=== PATIENT | male | born 1940 | race Caucasian/White ===

== ENCOUNTER 2017-06-12 17:00 | Emergency (ER) | payer MEDICARE, OTHER ==
[~2017-06-12] VITALS: Ht 170.2 cm; Wt 115.2 kg
[~2017-06-12 17:00] MED LIST: ALBU8.5H8 IH; ATR0.5NEB IH; CHOL2000 PO; DULO-31 PO; FENO48TA15 PO; FERR134T2 PO; FLUT10SP NS; FLUT12AE9 INH; FURO20TA4 PO; GLIM1TAB46 PO; HYDR-4070 PO; INSU200I4; LACT1CAP65 PO; LINA5TAB4 PO; LYR25C PO; MELA3TAB PO; MOME45OI11 TOP; NEOM3.5O9 OP; NITR0.4T51 SL; PANT40TA39 PO; POLY454P5 PO; SIMV20TA5 PO; VALS160T2 PO; WARFARIN PO
[2017-06-12 17:20] VITALS: BP 125/62
[2017-06-12] MEDS ORDERED: LIDOcaine 1% 30ml preserv. free vial IJ ONE (18:00)
== END 2017-06-12 18:58 | disposition home or self-care (01) ==
LOC: ER 17:01
DX: S61.012A Laceration without foreign body of left thumb without damage to nail, initial encounter (principal); I10 Essential (primary) hypertension; E78.00 Pure hypercholesterolemia, unspecified; J44.9 Chronic obstructive pulmonary disease, unspecified; K21.9 Gastro-esophageal reflux disease without esophagitis; E11.9 Type 2 diabetes mellitus without complications; G89.29 Other chronic pain; Z90.49 Acquired absence of other specified parts of digestive tract; Z91.040 Latex allergy status; Z79.899 Other long term (current) drug therapy; Z79.4 Long term (current) use of insulin; W26.0XXA Contact with knife, initial encounter; Y93.89 Activity, other specified; Y92.89 Other specified places as the place of occurrence of the external cause; Y99.8 Other external cause status
CPT/HCPCS: 12001; 99283; A6255; A6449; J3490

== ENCOUNTER 2017-07-11 05:01 | Outpatient (CLI) | payer MEDICARE, OTHER | END 2017-07-11 23:59 | disposition home or self-care (01) | LOC: DIABETIC 05:01 | PROVIDERS: ATTEND Family Medicine | DX: E11.9 Type 2 diabetes mellitus without complications (principal); I10 Essential (primary) hypertension; J44.9 Chronic obstructive pulmonary disease, unspecified; Z87.891 Personal history of nicotine dependence | CPT/HCPCS: G0108 ==

== ENCOUNTER 2017-10-18 01:36 | Outpatient (CLI) | payer MEDICARE, OTHER | END 2017-10-18 23:59 | disposition home or self-care (01) | LOC: DIABETIC 01:36 | PROVIDERS: ATTEND Family Medicine | DX: E11.9 Type 2 diabetes mellitus without complications (principal); J44.9 Chronic obstructive pulmonary disease, unspecified; I10 Essential (primary) hypertension; Z79.899 Other long term (current) drug therapy; Z91.040 Latex allergy status; Z88.8 Allergy status to other drugs, medicaments and biological substances; Z87.891 Personal history of nicotine dependence; Z98.890 Other specified postprocedural states | CPT/HCPCS: G0108 ==

== ENCOUNTER 2018-01-23 02:26 | Outpatient (CLI) | payer MEDICARE, OTHER | END 2018-01-23 23:59 | disposition home or self-care (01) | LOC: DIABETIC 02:26 | PROVIDERS: ATTEND Family Medicine | DX: E11.9 Type 2 diabetes mellitus without complications (principal); J44.9 Chronic obstructive pulmonary disease, unspecified; I10 Essential (primary) hypertension; Z79.899 Other long term (current) drug therapy; Z91.040 Latex allergy status; Z88.8 Allergy status to other drugs, medicaments and biological substances; Z87.891 Personal history of nicotine dependence | CPT/HCPCS: G0108 ==

== ENCOUNTER 2018-04-24 01:34 | Outpatient (CLI) | payer MEDICARE, OTHER | END 2018-04-24 23:59 | disposition home or self-care (01) | LOC: DIABETIC 01:34 | PROVIDERS: ATTEND Family Medicine | DX: E11.9 Type 2 diabetes mellitus without complications (principal); I10 Essential (primary) hypertension; J44.9 Chronic obstructive pulmonary disease, unspecified; Z79.4 Long term (current) use of insulin; Z91.040 Latex allergy status; Z88.8 Allergy status to other drugs, medicaments and biological substances; Z88.6 Allergy status to analgesic agent | CPT/HCPCS: G0108 ==

== ENCOUNTER 2018-06-15 12:12 | Emergency (ER) | payer MEDICARE, OTHER ==
[~2018-06-15] VITALS: Ht 170.2 cm; Wt 116.4 kg
[2018-06-15 13:14] LABS: BASOPHILS % (AUTO) 0.3 % (0-1); EOSINOPHILS # (AUTO) 0.1 X10'3 (0-0.9); EOSINOPHILS % (AUTO) 0.9 % (0-6); HEMATOCRIT 43.3 % (42.0-52.0); HEMOGLOBIN 13.9 g/dl (14.0-17.9); LYMPHOCYTES # (AUTO) 1.4 X10'3 (1.1-4.8); LYMPHOCYTES % (AUTO) 16.1 % (21-51); MEAN CORPUSCULAR HEMOGLOBIN 32.8 PG (27.0-31.0); MEAN CORPUSCULAR HGB CONC 32.2 g/dL (33.0-36.5); MEAN CORPUSCULAR VOLUME 102.1 FL (78-98); MEAN PLATELET VOLUME 9.9 FL (7.4-10.4); MONOCYTES # (AUTO) 1.1 X10'3 (0-0.9); MONOCYTES % (AUTO) 11.7 % (2-12); NEUTROPHILS # (AUTO) 6.4 X10'3 (1.8-7.7); PLATELET COUNT 140 X10'3 (140-440); RED BLOOD COUNT 4.24 X10'6 (4.70-6.10); RED CELL DISTRIBUTION WIDTH 14.6 % (11.5-14.5)
[2018-06-15 13:36] LABS: ALANINE AMINOTRANSFERASE 60 U/L (12-78); ALBUMIN 3.3 G/DL (3.4-5.0); ALBUMIN/GLOBULIN RATIO 0.8 (1.1-1.5); ALKALINE PHOSPHATASE 94 IU/L (46-116); ANION GAP 9 (8-16); ASPARTATE AMINO TRANSFERASE 67 U/L (10-37); BILIRUBIN,TOTAL 0.7 MG/DL (0.1-1.0); BLOOD UREA NITROGEN 40 MG/DL (7-18); BUN/CREATININE RATIO 18.2 (5.4-32.0); CALCIUM 9.1 MG/DL (8.5-10.1); CHLORIDE 101 MMOL/L (99-107); GLUCOSE 211 MG/DL (70-104); POTASSIUM 4.7 MMOL/L (3.5-5.1); SODIUM 139 MMOL/L (135-145); TOTAL CARBON DIOXIDE 29.3 MMOL/L (24-32); TOTAL PROTEIN 7.2 G/DL (6.4-8.2); eGFR 29 ML/MIN
[2018-06-15] MEDS ORDERED: ipratropium/albuterol 3ml nebule NEB ONE (14:25)
[2018-06-15] MEDS ORDERED: azithromycin/NS 500mg/250ml 250 ML IV ONE (14:25)
[2018-06-15] MEDS ORDERED: CefTRIAXone 2gm/D5W 50ml 50 ML IV ONE (14:25)
[2018-06-15 14:55] LABS: ETHANOL < 0.010 GM/DL (0.0-0.010); MAGNESIUM 1.7 MG/DL (1.5-2.4)
--- NOTE | 2018-06-15 15:01 | NUR ---
Spoke with Dr. Ham regarding ordered abx dosages and indication from dosage. Dr. Ham stated that Patient had an elevated LA, but wanted to treat patient for COPD, not sepsis. Discussed with Dr. aHm regarding sepsis protocol and fluid administration, Dr. Ham stated that he wanted to hold off on fluid administation due to patient taking PO lasix for CHF at home.
[2018-06-15 15:03] LABS: INR 1.1 INR; PARTIAL THROMBOPLASTIN TIME 29 SECONDS (22-32); PROTHROMBIN TIME 11.2 SECONDS (9.0-12.0)
[2018-06-15 15:35] LABS: CLARITY,URINE CLEAR (Clear); COLOR,URINE YELLOW (Yellow); GLUCOSE, URINE NEGATIVE (Neg); KETONES,URINE NEGATIVE (Neg); LEUKOCYTE ESTERASE ,URINE NEGATIVE (Neg); NITRITES, URINE NEGATIVE (Neg); OCCULT BLOOD,URINE NEGATIVE (Neg); PH,URINE 5.5 (4.8-8.0); PROTEIN,URINE NEGATIVE (Neg); UROBILINOGEN,URINE 0.2 E.U/dL (0.2-1.0)
[2018-06-15 15:37] LABS: UA COLLECTION TYPE URINAL
[2018-06-15] MEDS ORDERED: FURO40TA4 PO (16:49)
[2018-06-15] MEDS ORDERED: ICOS1CAP PO (16:57)
[2018-06-15] MEDS ORDERED: DULA1.5P SQ (16:57)
[2018-06-15] MEDS ORDERED: GABA-532 PO (16:57)
[2018-06-15] MEDS ORDERED: SIMV10TA6 PO (16:57)
[2018-06-15] MEDS ORDERED: APIX2.5T PO (16:57)
[2018-06-15] MEDS ORDERED: FOLI1TAB16 PO (16:57)
[2018-06-15] MEDS ORDERED: INSU200I SQ (16:57)
[2018-06-15] MEDS ORDERED: DICL100G15 TOP (16:57)
[2018-06-15] MEDS ORDERED: GABA-530 PO (16:57)
[2018-06-15] MEDS ORDERED: MORP-64 PO (17:04)
[2018-06-15] MEDS ORDERED: HYDR-4353 PO (17:04)
[2018-06-15] MEDS ORDERED: albuterol 2.5 MG/3 ML nebule NEB ONE (17:50)
[2018-06-15] MEDS ORDERED: methylPREDNISolone sod succ 125mg/2ml vial IV ONE (17:50)
[2018-06-15] MEDS ORDERED: albuterol 2.5 MG/3 ML nebule ONE (17:52)
[2018-06-15] MEDS ORDERED: AZIT-63 PO (18:02)
[2018-06-15] MEDS ORDERED: PRED20TA PO (18:02)
[2018-06-15 18:26] VITALS: BP 176/67
== END 2018-06-15 18:28 | disposition home or self-care (01) ==
LOC: ER 12:13
DX: J44.1 Chronic obstructive pulmonary disease with (acute) exacerbation (principal); E11.65 Type 2 diabetes mellitus with hyperglycemia; I10 Essential (primary) hypertension; K21.9 Gastro-esophageal reflux disease without esophagitis; G89.29 Other chronic pain; E78.00 Pure hypercholesterolemia, unspecified; Z86.718 Personal history of other venous thrombosis and embolism; Z90.49 Acquired absence of other specified parts of digestive tract; Z98.890 Other specified postprocedural states; Z79.01 Long term (current) use of anticoagulants; Z79.899 Other long term (current) drug therapy; Z79.4 Long term (current) use of insulin; Z91.040 Latex allergy status; Z88.8 Allergy status to other drugs, medicaments and biological substances
CPT/HCPCS: 36415; 71046; 80053; 80320; 81003; 83605; 83735; 83880; 84145; 84484; 85025; 85610; 85730; 87040; 93005; 94640; 94760; 96365; 96375; 99284; J0456; J0696; J2930

== ENCOUNTER 2018-07-24 05:07 | Outpatient (CLI) | payer MEDICARE, OTHER ==
[~2018-07-24 05:07] MED LIST changes: -ALBU8.5H8 IH; +APIX2.5T PO; +DICL100G15 TOP; +DULA1.5P SQ; -FENO48TA15 PO; +FOLI1TAB16 PO; -FURO20TA4 PO; +FURO40TA4 PO; +GABA-530 PO; +GABA-532 PO; -GLIM1TAB46 PO; -HYDR-4070 PO; +HYDR-4353 PO; +ICOS1CAP PO; +INSU200I SQ; -LINA5TAB4 PO; -MOME45OI11 TOP; +MORP-64 PO; -NEOM3.5O9 OP; +SIMV10TA6 PO; -SIMV20TA5 PO; -WARFARIN PO
== END 2018-07-24 23:59 | disposition home or self-care (01) ==
LOC: DIABETIC 05:07
PROVIDERS: ATTEND Family Medicine
DX: E11.65 Type 2 diabetes mellitus with hyperglycemia (principal); Z79.4 Long term (current) use of insulin; Z79.899 Other long term (current) drug therapy; Z91.040 Latex allergy status; Z88.8 Allergy status to other drugs, medicaments and biological substances
CPT/HCPCS: G0108

== ENCOUNTER 2018-10-24 02:28 | Outpatient (CLI) | payer MEDICARE ==
[~2018-10-24 02:28] MED LIST changes: -MELA3TAB PO; +MELA3TAB64 PO; -MORP-64 PO; +MORP-92 PO
== END 2018-10-24 23:59 | disposition home or self-care (01) ==
LOC: DIABETIC 02:28
PROVIDERS: ATTEND Family Medicine
DX: E11.9 Type 2 diabetes mellitus without complications (principal); I10 Essential (primary) hypertension; J44.9 Chronic obstructive pulmonary disease, unspecified; Z79.4 Long term (current) use of insulin; Z91.040 Latex allergy status; Z79.899 Other long term (current) drug therapy; Z88.8 Allergy status to other drugs, medicaments and biological substances
CPT/HCPCS: G0108

== ENCOUNTER 2019-01-21 04:10 | Outpatient (CLI) | payer MEDICARE ==
[~2019-01-21 04:10] MED LIST changes: -SIMV10TA6 PO; +SIMV10TA98 PO
== END 2019-01-21 23:59 | disposition home or self-care (01) ==
LOC: DIABETIC 04:10
PROVIDERS: ATTEND Family Medicine
DX: E11.9 Type 2 diabetes mellitus without complications (principal); J44.9 Chronic obstructive pulmonary disease, unspecified; I10 Essential (primary) hypertension; Z79.4 Long term (current) use of insulin; Z79.899 Other long term (current) drug therapy; Z91.040 Latex allergy status; Z88.8 Allergy status to other drugs, medicaments and biological substances
CPT/HCPCS: G0108

== ENCOUNTER 2019-04-22 04:36 | Outpatient (CLI) | payer MEDICARE | END 2019-04-22 23:59 | disposition home or self-care (01) | LOC: DIABETIC 04:36 | PROVIDERS: ATTEND Family Medicine | DX: E11.9 Type 2 diabetes mellitus without complications (principal) | CPT/HCPCS: G0108 ==

== ENCOUNTER 2019-10-07 07:43 | Day surgery (SDC) | payer MEDICARE, OTHER ==
[2019-10-01 16:06] LABS: BASOPHILS % (AUTO) 0.5 % (0-1); EOSINOPHILS # (AUTO) 0.2 X10'3 (0-0.9); EOSINOPHILS % (AUTO) 2.6 % (0-6); LYMPHOCYTES % (AUTO) 32.4 % (21-51); MEAN CORPUSCULAR HGB CONC 32.9 g/dL (33.0-36.5); MEAN CORPUSCULAR VOLUME 100.3 FL (78-98); MEAN PLATELET VOLUME 9.2 FL (7.4-10.4); MONOCYTES # (AUTO) 0.7 X10'3 (0-0.9); MONOCYTES % (AUTO) 11.9 % (2-12); NEUTROPHILS # (AUTO) 3.2 X10'3 (1.8-7.7); NEUTROPHILS % (AUTO) 52.6 % (42-75); PRE OP HEMATOCRIT 36.8 % (42.0-52.0); PRE OP HEMOGLOBIN 12.1 g/dL (14.0-17.9); PRE OP PLATELET COUNT 113 X10'3 (140-440); RED BLOOD COUNT 3.67 X10'6 (4.70-6.10); RED CELL DISTRIBUTION WIDTH 15.7 % (11.5-14.5)
[2019-10-01 16:21] LABS: PRE OP INR 1.1 INR
[2019-10-01 16:24] LABS: ALBUMIN 3.6 G/DL (3.4-5.0); ALBUMIN/GLOBULIN RATIO 0.9 (1.1-1.5); ALKALINE PHOSPHATASE 65 IU/L (46-116); BLOOD UREA NITROGEN 34 MG/DL (7-18); BUN/CREATININE RATIO 13.4 (5.4-32.0); CHLORIDE 106 MMOL/L (99-107); CREATININE 2.53 MG/DL (0.60-1.10); PRE OP ALT 41 U/L (30-65); PRE OP ANION GAP 10 (8-16); PRE OP BILIRUB, TOTAL 0.6 MG/DL (0.0-1.0); PRE OP GLUCOSE 63 MG/DL (70-104); PRE OP SODIUM 147 MMOL/L (135-145); TOTAL CARBON DIOXIDE 31.3 MMOL/L (24-32); TOTAL PROTEIN 7.4 G/DL (6.4-8.2); eGFR 25 ML/MIN
[2019-10-01 16:29] LABS: PRE OP AST 37 U/L (10-37); PRE OP POTASSIUM 4.4 MMOL/L (3.4-5.1)
[~2019-10-07] VITALS: Ht 175.3 cm; Wt 120.2 kg
[~2019-10-07 07:43] MED LIST changes: -FERR134T2 PO; +FLUO30CR46 TOP; +FLUT100D2 INH; -FLUT10SP NS; -FOLI1TAB16 PO; -GABA-530 PO; -LACT1CAP65 PO; +LIDOcaine 1% 30ml preserv. free vial ONE; +LOSA25TA96 PO; -MELA3TAB64 PO; +NALO4SPR BOTHNARES; -POLY454P5 PO; +VALA100031 PO; -VALS160T2 PO; +albuterol 2.5 MG/3 ML nebule NEB ONE; +ceFAZolin 2gm in dextrose, iso 50 ML IV ONE; +famotidine 20mg tablet PO ONE; +ringers solution, lacted 1,000 ML IV SCH
[2019-10-07 07:50] VITALS: BP 167/91
[2019-10-07] MEDS ORDERED: ringers solution, lacted 1,000 ML IV SCH (09:09)
[2019-10-07] MEDS ORDERED: morphine 2 MG/ML inj. syringe IV PRN (09:10)
[2019-10-07] MEDS ORDERED: morphine 4 MG/ML inj SYRINge IV PRN (09:10)
[2019-10-07] MEDS ORDERED: meperidine/PF 25mg/ml syringe IV PRN ×3 (09:10)
[2019-10-07] MEDS ORDERED: proCHLORperazine 10 MG/2 ml inj IV PRN (09:10)
[2019-10-07] MEDS ORDERED: ondansetron/PF 4mg/2ml inj IV PRN (09:10)
--- NOTE | 2019-10-07 09:20 | NUR ---
DR MALONEY AWARE OF BS 67. NO ORDERS
[2019-10-07] MEDS ORDERED: midazolam 2 mg/2 ml injection ONE (09:34)
[2019-10-07] MEDS ORDERED: fentaNYL/PF 50MCG/1 ML 2ML syringe ONE (09:34)
[2019-10-07] MEDS ORDERED: BUPIVAcaine/PF 2.5mg/ml (0.25%) 10ml vial ONE (09:41)
--- NOTE | 2019-10-07 10:19 | NUR ---
Received from OR via [facility] , accompanied by Anesthesiologist GISSELLE and report given by Anesthesiolgist. PATIENT WITH 20G PIV IN RIGHT UE. VSS, DENIES PAIN LEFT WRIST DRESSING IS CDI AND NO C/O PAIN. + CAP REFILL AND MOVEMENT. Addendum: 10/07/19 at 1028 by Alexis Valencia RN, RN Amended: Links added.
[2019-10-07 10:26] VITALS: BP 141/69
[2019-10-07 10:36] VITALS: BP 140/72
[2019-10-07 10:46] VITALS: BP 134/71
[2019-10-07 10:56] VITALS: BP 129/69
--- NOTE | 2019-10-07 11:06 | NUR ---
I HAVE REVIEWED D/C INSTRUCTIONS WITH PATIENT AND FAMILY AND THEY HAVE VERBALIZED UNDERSTANDING. PATIENT D/C HOME WITH ALL BELONGINGS AND FAMILY GAVE TRANSPORT HOME. KIM TOOK PATIENT HOME. ON HIS OWN 4LPM OF O2. DENIES PAIN AND DRESSING TO LEFT WRIST WAS CDI. Addendum: 10/07/19 at 1114 by Alexis Valencia RN, RN Amended: Links added.
== END 2019-10-07 11:06 | disposition home or self-care (01) ==
LOC: PAS 07:43
PROVIDERS: ATTEND Orthopaedic Surgery Hand Surgery
DX: G56.02 Carpal tunnel syndrome, left upper limb (principal); G89.4 Chronic pain syndrome; J44.9 Chronic obstructive pulmonary disease, unspecified; G47.30 Sleep apnea, unspecified; I10 Essential (primary) hypertension; E11.22 Type 2 diabetes mellitus with diabetic chronic kidney disease; I13.0 Hypertensive heart and chronic kidney disease with heart failure and stage 1 through stage 4 chronic kidney disease, or unspecified chronic kidney disease; I50.9 Heart failure, unspecified; N18.9 Chronic kidney disease, unspecified; F32.9 Major depressive disorder, single episode, unspecified; F41.9 Anxiety disorder, unspecified; M19.90 Unspecified osteoarthritis, unspecified site; Z86.718 Personal history of other venous thrombosis and embolism; Z99.81 Dependence on supplemental oxygen; Z88.8 Allergy status to other drugs, medicaments and biological substances; Z91.040 Latex allergy status; Z11.59 Encounter for screening for other viral diseases; Z79.899 Other long term (current) drug therapy; Z79.01 Long term (current) use of anticoagulants; Z98.890 Other specified postprocedural states; Z87.891 Personal history of nicotine dependence; Z72.89 Other problems related to lifestyle
CPT/HCPCS: 36415; 64721; 71046; 80053; 82948; 85025; 85610; 85730; 93005; 94640; 94760; J2001; J2250; J3010; J3490; U0003; A4215; A6449; J7120

== ENCOUNTER 2019-10-12 02:18 | Emergency (ER) | payer MEDICARE, OTHER ==
[~2019-10-12] VITALS: Ht 170.2 cm; Wt 120.2 kg
[~2019-10-12 02:18] MED LIST changes: -LIDOcaine 1% 30ml preserv. free vial ONE; -albuterol 2.5 MG/3 ML nebule NEB ONE; -ceFAZolin 2gm in dextrose, iso 50 ML IV ONE; -famotidine 20mg tablet PO ONE; -ringers solution, lacted 1,000 ML IV SCH
[2019-10-12] MEDS ORDERED: oxyCODONE/APAP 10/325mg tablet PO ONE (02:45)
[2019-10-12] MEDS ORDERED: fentaNYL intranasal KIT NAS STA ×2 (03:26→03:41)
[2019-10-12] MEDS ORDERED: LIDOcaine 1% 30ml preserv. free vial IJ ONE (03:35)
[2019-10-12] MEDS ORDERED: OXYC-658 PO (04:22)
[2019-10-12 04:37] VITALS: BP 169/79
== END 2019-10-12 04:39 | disposition home or self-care (01) ==
LOC: ER 02:18
DX: S52.572A Other intraarticular fracture of lower end of left radius, initial encounter for closed fracture (principal); M25.532 Pain in left wrist; M54.2 Cervicalgia; W01.190A Fall on same level from slipping, tripping and stumbling with subsequent striking against furniture, initial encounter; Y92.012 Bathroom of single-family (private) house as the place of occurrence of the external cause; Y93.89 Activity, other specified; Y99.8 Other external cause status; R58 Hemorrhage, not elsewhere classified; E78.00 Pure hypercholesterolemia, unspecified; I10 Essential (primary) hypertension; J44.9 Chronic obstructive pulmonary disease, unspecified; K21.9 Gastro-esophageal reflux disease without esophagitis; E11.9 Type 2 diabetes mellitus without complications; G89.29 Other chronic pain; Z86.718 Personal history of other venous thrombosis and embolism; Z90.49 Acquired absence of other specified parts of digestive tract; Z98.890 Other specified postprocedural states; Z88.8 Allergy status to other drugs, medicaments and biological substances; Z91.040 Latex allergy status; Z79.4 Long term (current) use of insulin; Z79.2 Long term (current) use of antibiotics; Z79.899 Other long term (current) drug therapy
CPT/HCPCS: 25605; 70450; 72125; 73100; 73110; 99285; J3010

== ENCOUNTER 2019-10-30 00:06 | Emergency (ER) | payer MEDICARE, OTHER ==
[~2019-10-30] VITALS: Ht 172.7 cm; Wt 119.1 kg
[~2019-10-30 00:06] MED LIST changes: +OXYC-658 PO
[2019-10-30] MEDS ORDERED: nitroGLYCERIN 0.4mg SUBLingual tab SL PRN (00:10)
[2019-10-30] MEDS ORDERED: aspirin 81mg tab.chew PO ONE (00:10)
[2019-10-30 00:36] LABS: BASOPHILS % (AUTO) 0.5 % (0-1); EOSINOPHILS # (AUTO) 0.2 X10'3 (0-0.9); EOSINOPHILS % (AUTO) 3.3 % (0-6); HEMATOCRIT 35.8 % (42.0-52.0); HEMOGLOBIN 12.1 g/dl (14.0-17.9); LYMPHOCYTES # (AUTO) 2.4 X10'3 (1.1-4.8); LYMPHOCYTES % (AUTO) 33.5 % (21-51); MEAN CORPUSCULAR HEMOGLOBIN 33.6 PG (27.0-31.0); MEAN CORPUSCULAR HGB CONC 33.7 g/dL (33.0-36.5); MEAN CORPUSCULAR VOLUME 99.9 FL (78-98); MEAN PLATELET VOLUME 9.8 FL (7.4-10.4); MONOCYTES # (AUTO) 0.8 X10'3 (0-0.9); MONOCYTES % (AUTO) 11.1 % (2-12); NEUTROPHILS # (AUTO) 3.7 X10'3 (1.8-7.7); NEUTROPHILS % (AUTO) 51.6 % (42-75); PLATELET COUNT 128 X10'3 (140-440); RED BLOOD COUNT 3.59 X10'6 (4.70-6.10); RED CELL DISTRIBUTION WIDTH 14.8 % (11.5-14.5); WHITE BLOOD COUNT 7.2 X10'3 (4.5-11.0)
[2019-10-30 00:48] LABS: ALANINE AMINOTRANSFERASE 28 U/L (12-78); ALBUMIN 3.7 G/DL (3.4-5.0); ALKALINE PHOSPHATASE 65 IU/L (46-116); ANION GAP 8 (8-16); ASPARTATE AMINO TRANSFERASE 24 U/L (10-37); BILIRUBIN,TOTAL 0.5 MG/DL (0.1-1.0); BLOOD UREA NITROGEN 53 MG/DL (7-18); BUN/CREATININE RATIO 18.2 (5.4-32.0); CHLORIDE 102 MMOL/L (99-107); CREATININE 2.92 MG/DL (0.60-1.10); GLUCOSE 119 MG/DL (70-104); POTASSIUM 4.1 MMOL/L (3.5-5.1); SODIUM 143 MMOL/L (135-145); TOTAL CARBON DIOXIDE 32.8 MMOL/L (24-32); TOTAL PROTEIN 7.3 G/DL (6.4-8.2); eGFR 21 ML/MIN
[2019-10-30 00:57] LABS: MAGNESIUM 2.3 MG/DL (1.5-2.4); TROPONIN I < 0.04 NG/ML (0.0-0.05)
[2019-10-30 01:19] VITALS: BP 113/76
[2019-10-30 02:14] LABS: D-DIMER 1.11 MG/L FEU (0-0.50); PARTIAL THROMBOPLASTIN TIME 26 SECONDS (22-32)
--- NOTE | 2019-10-30 02:39 | NUR ---
dr cope talking with Pt about lab work and DC. Reports he has a negative cardiac work up. Pt called to ick up for DC.
== END 2019-10-30 02:43 | disposition home or self-care (01) ==
LOC: ER 00:07
DX: R07.89 Other chest pain (principal); I12.9 Hypertensive chronic kidney disease with stage 1 through stage 4 chronic kidney disease, or unspecified chronic kidney disease; E11.22 Type 2 diabetes mellitus with diabetic chronic kidney disease; N18.9 Chronic kidney disease, unspecified; E78.00 Pure hypercholesterolemia, unspecified; J44.9 Chronic obstructive pulmonary disease, unspecified; K21.9 Gastro-esophageal reflux disease without esophagitis; G89.29 Other chronic pain; I48.91 Unspecified atrial fibrillation; Z86.718 Personal history of other venous thrombosis and embolism; Z90.49 Acquired absence of other specified parts of digestive tract; Z98.890 Other specified postprocedural states; Z79.899 Other long term (current) drug therapy; Z91.040 Latex allergy status; Z88.6 Allergy status to analgesic agent; Z88.8 Allergy status to other drugs, medicaments and biological substances
CPT/HCPCS: 36415; 71045; 80053; 83735; 83880; 84484; 85025; 85379; 85610; 85730; 93005; 99285

== ENCOUNTER 2019-11-14 20:12 | Emergency (ER) | payer MEDICARE, OTHER ==
[~2019-11-14] VITALS: Ht 172.7 cm; Wt 130.0 kg
[~2019-11-14 20:12] MED LIST changes: -OXYC-658 PO
[2019-11-14 21:27] VITALS: BP 116/86
== END 2019-11-14 23:01 | disposition home or self-care (01) ==
LOC: ER 20:13
DX: S62.109D Fracture of unspecified carpal bone, unspecified wrist, subsequent encounter for fracture with routine healing (principal); E78.00 Pure hypercholesterolemia, unspecified; I10 Essential (primary) hypertension; J44.9 Chronic obstructive pulmonary disease, unspecified; G47.30 Sleep apnea, unspecified; K21.9 Gastro-esophageal reflux disease without esophagitis; E11.9 Type 2 diabetes mellitus without complications; G89.29 Other chronic pain; Z86.718 Personal history of other venous thrombosis and embolism; Z00.00 Encounter for general adult medical examination without abnormal findings; Z90.49 Acquired absence of other specified parts of digestive tract; Z98.890 Other specified postprocedural states; Z88.5 Allergy status to narcotic agent; Z88.8 Allergy status to other drugs, medicaments and biological substances; Z79.01 Long term (current) use of anticoagulants; Z79.4 Long term (current) use of insulin; Z79.899 Other long term (current) drug therapy
CPT/HCPCS: 99284

== ENCOUNTER 2019-11-26 08:00 | Day surgery (SDC) | payer MEDICARE, OTHER ==
[2019-11-26] MEDS ORDERED: LIDOcaine 2% 5ml jelly ONE (09:09)
== END 2019-11-26 10:21 | disposition home or self-care (01) ==
LOC: WOUND CARE 08:00
PROVIDERS: ATTEND Nurse Practitioner
DX: T81.89XA Other complications of procedures, not elsewhere classified, initial encounter (principal); E11.622 Type 2 diabetes mellitus with other skin ulcer; L97.311 Non-pressure chronic ulcer of right ankle limited to breakdown of skin; E11.65 Type 2 diabetes mellitus with hyperglycemia; E11.36 Type 2 diabetes mellitus with diabetic cataract; E11.22 Type 2 diabetes mellitus with diabetic chronic kidney disease; I13.0 Hypertensive heart and chronic kidney disease with heart failure and stage 1 through stage 4 chronic kidney disease, or unspecified chronic kidney disease; I50.9 Heart failure, unspecified; N18.9 Chronic kidney disease, unspecified; E11.51 Type 2 diabetes mellitus with diabetic peripheral angiopathy without gangrene; J44.9 Chronic obstructive pulmonary disease, unspecified; E78.5 Hyperlipidemia, unspecified; K21.9 Gastro-esophageal reflux disease without esophagitis; I87.2 Venous insufficiency (chronic) (peripheral); I89.0 Lymphedema, not elsewhere classified; E78.00 Pure hypercholesterolemia, unspecified; G47.30 Sleep apnea, unspecified; I48.91 Unspecified atrial fibrillation; G89.4 Chronic pain syndrome; M54.2 Cervicalgia; M19.90 Unspecified osteoarthritis, unspecified site; F32.9 Major depressive disorder, single episode, unspecified; F41.9 Anxiety disorder, unspecified; Z87.891 Personal history of nicotine dependence; Z90.49 Acquired absence of other specified parts of digestive tract; Z79.01 Long term (current) use of anticoagulants; Z79.4 Long term (current) use of insulin; Z86.718 Personal history of other venous thrombosis and embolism; Z79.899 Other long term (current) drug therapy; Z98.890 Other specified postprocedural states; Z79.2 Long term (current) use of antibiotics; Z99.81 Dependence on supplemental oxygen; Y83.8 Other surgical procedures as the cause of abnormal reaction of the patient, or of later complication, without mention of misadventure at the time of the procedure; Y92.238 Other place in hospital as the place of occurrence of the external cause
CPT/HCPCS: 36416; 82948; 87070; 87075; 87077; 87102; 87186; 97597

== ENCOUNTER 2019-12-03 14:00 | Day surgery (SDC) | payer MEDICARE, OTHER ==
[2019-12-03] MEDS ORDERED: LIDOcaine 2% 5ml jelly ONE (14:52)
== END 2019-12-03 15:33 | disposition home or self-care (01) ==
LOC: WOUND CARE 14:00
PROVIDERS: ATTEND Nurse Practitioner
DX: T81.89XD Other complications of procedures, not elsewhere classified, subsequent encounter (principal); E11.622 Type 2 diabetes mellitus with other skin ulcer; L97.311 Non-pressure chronic ulcer of right ankle limited to breakdown of skin; E11.65 Type 2 diabetes mellitus with hyperglycemia; E11.36 Type 2 diabetes mellitus with diabetic cataract; E11.22 Type 2 diabetes mellitus with diabetic chronic kidney disease; I13.0 Hypertensive heart and chronic kidney disease with heart failure and stage 1 through stage 4 chronic kidney disease, or unspecified chronic kidney disease; I50.9 Heart failure, unspecified; N18.9 Chronic kidney disease, unspecified; E11.51 Type 2 diabetes mellitus with diabetic peripheral angiopathy without gangrene; J44.9 Chronic obstructive pulmonary disease, unspecified; E78.5 Hyperlipidemia, unspecified; K21.9 Gastro-esophageal reflux disease without esophagitis; I87.2 Venous insufficiency (chronic) (peripheral); I89.0 Lymphedema, not elsewhere classified; E78.00 Pure hypercholesterolemia, unspecified; G47.30 Sleep apnea, unspecified; I48.91 Unspecified atrial fibrillation; G89.4 Chronic pain syndrome; M54.2 Cervicalgia; M19.90 Unspecified osteoarthritis, unspecified site; F32.9 Major depressive disorder, single episode, unspecified; F41.9 Anxiety disorder, unspecified; Z87.891 Personal history of nicotine dependence; Z90.49 Acquired absence of other specified parts of digestive tract; Z79.01 Long term (current) use of anticoagulants; Z79.4 Long term (current) use of insulin; Z86.718 Personal history of other venous thrombosis and embolism; Z79.899 Other long term (current) drug therapy; Z98.890 Other specified postprocedural states; Z79.2 Long term (current) use of antibiotics; Z99.81 Dependence on supplemental oxygen; Y83.8 Other surgical procedures as the cause of abnormal reaction of the patient, or of later complication, without mention of misadventure at the time of the procedure
CPT/HCPCS: 82948; G0463

== ENCOUNTER 2019-12-11 14:20 | Day surgery (SDC) | payer MEDICARE, OTHER | END 2019-12-11 15:14 | disposition home or self-care (01) | LOC: WOUND CARE 14:20 | PROVIDERS: ATTEND Nurse Practitioner | DX: T81.89XD Other complications of procedures, not elsewhere classified, subsequent encounter (principal); E11.622 Type 2 diabetes mellitus with other skin ulcer; L97.311 Non-pressure chronic ulcer of right ankle limited to breakdown of skin; E11.65 Type 2 diabetes mellitus with hyperglycemia; E11.36 Type 2 diabetes mellitus with diabetic cataract; E11.22 Type 2 diabetes mellitus with diabetic chronic kidney disease; I13.0 Hypertensive heart and chronic kidney disease with heart failure and stage 1 through stage 4 chronic kidney disease, or unspecified chronic kidney disease; I50.9 Heart failure, unspecified; N18.9 Chronic kidney disease, unspecified; E11.51 Type 2 diabetes mellitus with diabetic peripheral angiopathy without gangrene; J44.9 Chronic obstructive pulmonary disease, unspecified; E78.5 Hyperlipidemia, unspecified; K21.9 Gastro-esophageal reflux disease without esophagitis; I87.2 Venous insufficiency (chronic) (peripheral); I89.0 Lymphedema, not elsewhere classified; E78.00 Pure hypercholesterolemia, unspecified; G47.30 Sleep apnea, unspecified; I48.91 Unspecified atrial fibrillation; G89.4 Chronic pain syndrome; M54.2 Cervicalgia; M19.90 Unspecified osteoarthritis, unspecified site; F32.9 Major depressive disorder, single episode, unspecified; F41.9 Anxiety disorder, unspecified; Z87.891 Personal history of nicotine dependence; Z90.49 Acquired absence of other specified parts of digestive tract; Z79.01 Long term (current) use of anticoagulants; Z79.4 Long term (current) use of insulin; Z86.718 Personal history of other venous thrombosis and embolism; Z79.899 Other long term (current) drug therapy; Z98.890 Other specified postprocedural states; Z79.2 Long term (current) use of antibiotics; Z99.81 Dependence on supplemental oxygen; Y83.8 Other surgical procedures as the cause of abnormal reaction of the patient, or of later complication, without mention of misadventure at the time of the procedure | CPT/HCPCS: 36416; 82948; G0463 ==

== ENCOUNTER 2019-12-18 14:27 | Day surgery (SDC) | payer MEDICARE, OTHER ==
[2019-12-18] MEDS ORDERED: LIDOcaine 2% 5ml jelly ONE (15:33)
== END 2019-12-18 15:53 | disposition home or self-care (01) ==
LOC: WOUND CARE 14:27
PROVIDERS: ATTEND Nurse Practitioner
DX: T81.89XD Other complications of procedures, not elsewhere classified, subsequent encounter (principal); E11.622 Type 2 diabetes mellitus with other skin ulcer; L97.311 Non-pressure chronic ulcer of right ankle limited to breakdown of skin; E11.65 Type 2 diabetes mellitus with hyperglycemia; E11.36 Type 2 diabetes mellitus with diabetic cataract; I13.0 Hypertensive heart and chronic kidney disease with heart failure and stage 1 through stage 4 chronic kidney disease, or unspecified chronic kidney disease; I50.9 Heart failure, unspecified; N18.9 Chronic kidney disease, unspecified; E11.51 Type 2 diabetes mellitus with diabetic peripheral angiopathy without gangrene; E78.5 Hyperlipidemia, unspecified; K21.9 Gastro-esophageal reflux disease without esophagitis; I87.2 Venous insufficiency (chronic) (peripheral); E78.00 Pure hypercholesterolemia, unspecified; J43.9 Emphysema, unspecified; G47.30 Sleep apnea, unspecified; I48.91 Unspecified atrial fibrillation; G89.4 Chronic pain syndrome; E66.9 Obesity, unspecified; M54.2 Cervicalgia; M19.90 Unspecified osteoarthritis, unspecified site; F32.9 Major depressive disorder, single episode, unspecified; F41.9 Anxiety disorder, unspecified; Z87.891 Personal history of nicotine dependence; Z90.49 Acquired absence of other specified parts of digestive tract; Z79.01 Long term (current) use of anticoagulants; Z79.4 Long term (current) use of insulin; Z79.899 Other long term (current) drug therapy; Z98.890 Other specified postprocedural states; Z79.2 Long term (current) use of antibiotics; Z99.81 Dependence on supplemental oxygen; Z86.718 Personal history of other venous thrombosis and embolism; Z68.39 Body mass index [BMI] 39.0-39.9, adult; Y83.8 Other surgical procedures as the cause of abnormal reaction of the patient, or of later complication, without mention of misadventure at the time of the procedure
CPT/HCPCS: 36416; 82948; 97597

== ENCOUNTER 2019-12-25 11:29 | Outpatient (CLI) | payer MEDICARE, OTHER ==
[2019-12-25] MEDS ORDERED: LIDOcaine 2% 5ml jelly ONE (11:46)
== END 2019-12-25 23:59 | disposition home or self-care (01) ==
LOC: WOUND CARE 11:29
PROVIDERS: ATTEND Nurse Practitioner
DX: T81.89XD Other complications of procedures, not elsewhere classified, subsequent encounter (principal); E11.622 Type 2 diabetes mellitus with other skin ulcer; L97.312 Non-pressure chronic ulcer of right ankle with fat layer exposed; I83.022 Varicose veins of left lower extremity with ulcer of calf; L97.228 Non-pressure chronic ulcer of left calf with other specified severity; E11.65 Type 2 diabetes mellitus with hyperglycemia; E11.36 Type 2 diabetes mellitus with diabetic cataract; E11.22 Type 2 diabetes mellitus with diabetic chronic kidney disease; I13.0 Hypertensive heart and chronic kidney disease with heart failure and stage 1 through stage 4 chronic kidney disease, or unspecified chronic kidney disease; N18.9 Chronic kidney disease, unspecified; I50.9 Heart failure, unspecified; E11.51 Type 2 diabetes mellitus with diabetic peripheral angiopathy without gangrene; E78.5 Hyperlipidemia, unspecified; K21.9 Gastro-esophageal reflux disease without esophagitis; I87.2 Venous insufficiency (chronic) (peripheral); E78.00 Pure hypercholesterolemia, unspecified; J43.9 Emphysema, unspecified; G47.30 Sleep apnea, unspecified; I48.91 Unspecified atrial fibrillation; G89.4 Chronic pain syndrome; E66.9 Obesity, unspecified; M54.2 Cervicalgia; M19.90 Unspecified osteoarthritis, unspecified site; F32.9 Major depressive disorder, single episode, unspecified; F41.9 Anxiety disorder, unspecified; Z87.891 Personal history of nicotine dependence; Z90.49 Acquired absence of other specified parts of digestive tract; Z79.01 Long term (current) use of anticoagulants; Z79.4 Long term (current) use of insulin; Z79.899 Other long term (current) drug therapy; Z98.890 Other specified postprocedural states; Z79.2 Long term (current) use of antibiotics; Z99.81 Dependence on supplemental oxygen; Z86.718 Personal history of other venous thrombosis and embolism; Z68.39 Body mass index [BMI] 39.0-39.9, adult; Y83.8 Other surgical procedures as the cause of abnormal reaction of the patient, or of later complication, without mention of misadventure at the time of the procedure
CPT/HCPCS: 36416; 82948; 97597

== ENCOUNTER 2020-01-01 11:30 | Outpatient (CLI) | payer MEDICARE, OTHER ==
[2020-01-01] MEDS ORDERED: LIDOcaine 2% 5ml jelly ONE ×2 (11:57→12:17)
== END 2020-01-01 23:59 | disposition home or self-care (01) ==
LOC: WOUND CARE 11:30
PROVIDERS: ATTEND Nurse Practitioner
DX: T81.89XD Other complications of procedures, not elsewhere classified, subsequent encounter (principal); E11.622 Type 2 diabetes mellitus with other skin ulcer; L97.311 Non-pressure chronic ulcer of right ankle limited to breakdown of skin; S81.802A Unspecified open wound, left lower leg, initial encounter; I83.022 Varicose veins of left lower extremity with ulcer of calf; L97.222 Non-pressure chronic ulcer of left calf with fat layer exposed; I83.012 Varicose veins of right lower extremity with ulcer of calf; L97.211 Non-pressure chronic ulcer of right calf limited to breakdown of skin; E11.65 Type 2 diabetes mellitus with hyperglycemia; E11.36 Type 2 diabetes mellitus with diabetic cataract; E11.22 Type 2 diabetes mellitus with diabetic chronic kidney disease; I13.0 Hypertensive heart and chronic kidney disease with heart failure and stage 1 through stage 4 chronic kidney disease, or unspecified chronic kidney disease; I50.9 Heart failure, unspecified; N18.9 Chronic kidney disease, unspecified; E11.51 Type 2 diabetes mellitus with diabetic peripheral angiopathy without gangrene; J44.9 Chronic obstructive pulmonary disease, unspecified; E78.5 Hyperlipidemia, unspecified; K21.9 Gastro-esophageal reflux disease without esophagitis; I87.2 Venous insufficiency (chronic) (peripheral); I89.0 Lymphedema, not elsewhere classified; E78.00 Pure hypercholesterolemia, unspecified; G47.30 Sleep apnea, unspecified; I48.91 Unspecified atrial fibrillation; G89.4 Chronic pain syndrome; M54.2 Cervicalgia; M19.90 Unspecified osteoarthritis, unspecified site; F32.9 Major depressive disorder, single episode, unspecified; F41.9 Anxiety disorder, unspecified; Z87.891 Personal history of nicotine dependence; Z90.49 Acquired absence of other specified parts of digestive tract; Z79.01 Long term (current) use of anticoagulants; Z79.4 Long term (current) use of insulin; Z86.718 Personal history of other venous thrombosis and embolism; Z79.899 Other long term (current) drug therapy; Z98.890 Other specified postprocedural states; Z79.2 Long term (current) use of antibiotics; Z99.81 Dependence on supplemental oxygen; Y83.8 Other surgical procedures as the cause of abnormal reaction of the patient, or of later complication, without mention of misadventure at the time of the procedure; X58.XXXA Exposure to other specified factors, initial encounter; Y93.89 Activity, other specified; Y92.89 Other specified places as the place of occurrence of the external cause; Y99.8 Other external cause status
CPT/HCPCS: 36416; 82948; 97597

== ENCOUNTER 2020-01-13 11:02 | Outpatient (CLI) | payer MEDICARE, OTHER ==
[2020-01-13] MEDS ORDERED: LIDOcaine 2% 5ml jelly ONE (11:37)
== END 2020-01-13 23:59 | disposition home or self-care (01) ==
LOC: WOUND CARE 11:02
PROVIDERS: ATTEND Nurse Practitioner Family
DX: T81.89XD Other complications of procedures, not elsewhere classified, subsequent encounter (principal); E11.622 Type 2 diabetes mellitus with other skin ulcer; L97.312 Non-pressure chronic ulcer of right ankle with fat layer exposed; I83.022 Varicose veins of left lower extremity with ulcer of calf; L97.222 Non-pressure chronic ulcer of left calf with fat layer exposed; I83.012 Varicose veins of right lower extremity with ulcer of calf; L97.211 Non-pressure chronic ulcer of right calf limited to breakdown of skin; E11.65 Type 2 diabetes mellitus with hyperglycemia; E11.36 Type 2 diabetes mellitus with diabetic cataract; E11.22 Type 2 diabetes mellitus with diabetic chronic kidney disease; I13.0 Hypertensive heart and chronic kidney disease with heart failure and stage 1 through stage 4 chronic kidney disease, or unspecified chronic kidney disease; N18.9 Chronic kidney disease, unspecified; I50.9 Heart failure, unspecified; E11.51 Type 2 diabetes mellitus with diabetic peripheral angiopathy without gangrene; E78.5 Hyperlipidemia, unspecified; K21.9 Gastro-esophageal reflux disease without esophagitis; J43.9 Emphysema, unspecified; I87.2 Venous insufficiency (chronic) (peripheral); I89.0 Lymphedema, not elsewhere classified; E78.00 Pure hypercholesterolemia, unspecified; E66.9 Obesity, unspecified; G47.30 Sleep apnea, unspecified; I48.91 Unspecified atrial fibrillation; G89.4 Chronic pain syndrome; M54.2 Cervicalgia; M19.90 Unspecified osteoarthritis, unspecified site; F32.9 Major depressive disorder, single episode, unspecified; F41.9 Anxiety disorder, unspecified; Z87.891 Personal history of nicotine dependence; Z90.49 Acquired absence of other specified parts of digestive tract; Z79.01 Long term (current) use of anticoagulants; Z79.4 Long term (current) use of insulin; Z86.718 Personal history of other venous thrombosis and embolism; Z79.899 Other long term (current) drug therapy; Z98.890 Other specified postprocedural states; Z68.39 Body mass index [BMI] 39.0-39.9, adult; Z79.2 Long term (current) use of antibiotics; Z99.81 Dependence on supplemental oxygen; Y83.8 Other surgical procedures as the cause of abnormal reaction of the patient, or of later complication, without mention of misadventure at the time of the procedure
CPT/HCPCS: 82948; 97597

== ENCOUNTER 2020-01-20 10:15 | Outpatient (CLI) | payer MEDICARE, OTHER | END 2020-01-20 23:59 | disposition home or self-care (01) | LOC: WOUND CARE 10:15 → EDSTATUS 12:00 → WOUND CARE 23:59 | PROVIDERS: ATTEND Nurse Practitioner Family | DX: T81.89XD Other complications of procedures, not elsewhere classified, subsequent encounter (principal); E11.622 Type 2 diabetes mellitus with other skin ulcer; L97.312 Non-pressure chronic ulcer of right ankle with fat layer exposed; I83.022 Varicose veins of left lower extremity with ulcer of calf; L97.222 Non-pressure chronic ulcer of left calf with fat layer exposed; I83.012 Varicose veins of right lower extremity with ulcer of calf; L97.211 Non-pressure chronic ulcer of right calf limited to breakdown of skin; E11.65 Type 2 diabetes mellitus with hyperglycemia; E11.36 Type 2 diabetes mellitus with diabetic cataract; E11.22 Type 2 diabetes mellitus with diabetic chronic kidney disease; I13.0 Hypertensive heart and chronic kidney disease with heart failure and stage 1 through stage 4 chronic kidney disease, or unspecified chronic kidney disease; N18.9 Chronic kidney disease, unspecified; I50.9 Heart failure, unspecified; E11.51 Type 2 diabetes mellitus with diabetic peripheral angiopathy without gangrene; E78.5 Hyperlipidemia, unspecified; K21.9 Gastro-esophageal reflux disease without esophagitis; J43.9 Emphysema, unspecified; I87.2 Venous insufficiency (chronic) (peripheral); I89.0 Lymphedema, not elsewhere classified; E78.00 Pure hypercholesterolemia, unspecified; E66.9 Obesity, unspecified; G47.30 Sleep apnea, unspecified; I48.91 Unspecified atrial fibrillation; G89.4 Chronic pain syndrome; M19.90 Unspecified osteoarthritis, unspecified site; F32.9 Major depressive disorder, single episode, unspecified; F41.9 Anxiety disorder, unspecified; Z87.891 Personal history of nicotine dependence; Z90.49 Acquired absence of other specified parts of digestive tract; Z79.01 Long term (current) use of anticoagulants; Z79.4 Long term (current) use of insulin; Z86.718 Personal history of other venous thrombosis and embolism; Z79.899 Other long term (current) drug therapy; Z98.890 Other specified postprocedural states; Z68.39 Body mass index [BMI] 39.0-39.9, adult; Z79.2 Long term (current) use of antibiotics; Z99.81 Dependence on supplemental oxygen; Y83.8 Other surgical procedures as the cause of abnormal reaction of the patient, or of later complication, without mention of misadventure at the time of the procedure | CPT/HCPCS: 36416; G0463 ==

== ENCOUNTER 2020-09-12 14:35 | Inpatient (IN) | payer MEDICARE, OTHER ==
[~2020-09-12] VITALS: Ht 175.3 cm; Wt 118.2 kg
--- NOTE | 2020-09-12 17:07 | NUR ---
Omega MAYES at bedside.
[2020-09-12] MEDS ORDERED: normal saline 1000ML IV soln IV ONE (17:10)
[2020-09-12 17:39] LABS: BASOPHILS % (AUTO) 0.5 % (0-1); EOSINOPHILS # (AUTO) 0.1 X10'3 (0-0.9); EOSINOPHILS % (AUTO) 2.1 % (0-6); HEMATOCRIT 35.4 % (42.0-52.0); HEMOGLOBIN 11.7 g/dl (14.0-17.9); LYMPHOCYTES # (AUTO) 1.4 X10'3 (1.1-4.8); LYMPHOCYTES % (AUTO) 21.2 % (21-51); MEAN CORPUSCULAR HEMOGLOBIN 33.6 PG (27.0-31.0); MEAN CORPUSCULAR HGB CONC 33.2 g/dL (33.0-36.5); MEAN CORPUSCULAR VOLUME 101.3 FL (78-98); MEAN PLATELET VOLUME 10.4 FL (7.4-10.4); MONOCYTES # (AUTO) 0.8 X10'3 (0-0.9); MONOCYTES % (AUTO) 11.5 % (2-12); NEUTROPHILS # (AUTO) 4.3 X10'3 (1.8-7.7); NEUTROPHILS % (AUTO) 64.7 % (42-75); PLATELET COUNT 96 X10'3 (140-440); RED BLOOD COUNT 3.49 X10'6 (4.70-6.10); RED CELL DISTRIBUTION WIDTH 15.3 % (11.5-14.5); WHITE BLOOD COUNT 6.7 X10'3 (4.5-11.0)
[2020-09-12 17:48] LABS: ALANINE AMINOTRANSFERASE 28 U/L (12-78); ALBUMIN 3.5 G/DL (3.4-5.0); ALBUMIN/GLOBULIN RATIO 0.9 (1.1-1.5); ALKALINE PHOSPHATASE 92 IU/L (46-116); ANION GAP 4 (8-16); ASPARTATE AMINO TRANSFERASE 32 U/L (10-37); BILIRUBIN,TOTAL 0.9 MG/DL (0.1-1.0); BLOOD UREA NITROGEN 59 MG/DL (7-18); BUN/CREATININE RATIO 19.3 (5.4-32.0); CALCIUM 9.2 MG/DL (8.5-10.1); CHLORIDE 101 MMOL/L (99-107); CREATININE 3.06 MG/DL (0.60-1.10); GLUCOSE 110 MG/DL (70-104); POTASSIUM 4.7 MMOL/L (3.5-5.1); SODIUM 142 MMOL/L (135-145); TOTAL PROTEIN 7.5 G/DL (6.4-8.2); eGFR 20 ML/MIN
[2020-09-12 17:55] LABS: MAGNESIUM 2.4 MG/DL (1.5-2.4)
[2020-09-12] MEDS ORDERED: normal saline 1000ml 1,000 ML IV ONE (18:00)
[2020-09-12 18:02] LABS: CLARITY,URINE CLEAR (Clear); COLOR,URINE YELLOW (Yellow); GLUCOSE, URINE NEGATIVE (Neg); KETONES,URINE NEGATIVE (Neg); LEUKOCYTE ESTERASE ,URINE NEGATIVE (Neg); NITRITES, URINE NEGATIVE (Neg); OCCULT BLOOD,URINE NEGATIVE (Neg); PH,URINE 5.5 (4.8-8.0); PROTEIN,URINE NEGATIVE (Neg); UROBILINOGEN,URINE 0.2 E.U/dL (0.2-1.0)
[2020-09-12 18:03] LABS: UA COLLECTION TYPE CLN CATCH MIDSTREAM
[2020-09-12 19:44] LABS: ABG BASE EXCESS 6.9 mmol/L (-2.0-2.0); ABG HCO3 33.3 mmol/L (22.0-26.0); ABG OXYGEN SATURATION 93.5 % (94-97); ABG PCO2 (T) 55.4 mmHg (35.0-48.0); ABG PO2 (T) 73.8 mmHg (75.0-100.0); FLOW 3 L/min; FMetHb 0.3 % (0.0-1.5); FO2Hb 92.3 % (94-97); PATIENT TEMPERATURE 36.6; TOTAL HEMOGLOBIN 11.4 G/dl (14.0-18.0)
[2020-09-12] MEDS ORDERED: CefTRIAXone 2gm/D5W 50ml BAG 50 ML IV ONE (19:45)
[2020-09-12] MEDS ORDERED: vancomycin/NS 1 GM ADD-VANTAGE 250 ML IV ONE (19:45)
[2020-09-12] MEDS ORDERED: ipratropium 0.5 MG/2.5ML nebule IH PRN (21:50)
[2020-09-12] MEDS ORDERED: magnesium Cl slow-release 64mg tablet PO PRN (21:55)
[2020-09-12] MEDS ORDERED: magnesium 2GM in 50ml NS 50 ML IV PRN (21:55)
[2020-09-12] MEDS ORDERED: magnesium 4gm in 100ml NS 100 ML IV PRN (21:55)
[2020-09-12] MEDS ORDERED: potassium Cl 20 mEq SR tablet PO PRN ×2 (21:55)
[2020-09-12] MEDS ORDERED: mag hydrox/Alum hydrox/simeth 30ml oral suspension PO PRN (21:55)
[2020-09-12] MEDS ORDERED: acetaminophen 325mg tablet PO PRN ×2 (21:55)
[2020-09-12] MEDS ORDERED: potassium Cl 40MEQ/1/2NS 520ml 520 ML IV PRN ×2 (21:55)
[2020-09-12] MEDS ORDERED: ondansetron/PF 4mg/2ml inj IV PRN (21:55)
[2020-09-12] MEDS ORDERED: dextrose 50%-water 50ml dispensing syringe IV PRN ×2 (22:00)
[2020-09-12] MEDS ORDERED: dextrose ORAL solution 15 GM/59 ML bottle PO PRN ×2 (22:00)
[2020-09-12] MEDS ORDERED: MESSAGE TO PHARMACY PO ONE (22:00)
[2020-09-12] MEDS ORDERED: glucagon, human recombinant 1mg kit SUBCUT PRN (22:00)
[2020-09-12] MEDS: normal saline 1000ml 1,000 ML IV SCH (22:04)
[2020-09-12] MEDS ORDERED: hydrALAZINE 25 MG tablet PO PRN (22:35)
[2020-09-12 23:45] VITALS: BP 144/74
[2020-09-13] MEDS: normal saline 1000ml 1,000 ML IV SCH (04:19)
[2020-09-13 06:00] VITALS: BP 152/80
--- NOTE | 2020-09-13 06:25 | NUR ---
Patient in room ORTHO 4017. I have received report from kady lagos and had the opportunity to ask questions and assume patient care.
--- NOTE | 2020-09-13 06:56 | NUR ---
Problems reprioritized. Patient report given, questions answered & plan of care reviewed with BAKARI ENG.
[2020-09-13 07:21] LABS: HEMOGLOBIN A1C 7.8 % (4.5-6.2)
[2020-09-13 07:23] LABS: BASOPHILS % (AUTO) 0.5 % (0-1); EOSINOPHILS # (AUTO) 0.2 X10'3 (0-0.9); EOSINOPHILS % (AUTO) 3.3 % (0-6); HEMATOCRIT 33.9 % (42.0-52.0); HEMOGLOBIN 11.3 g/dl (14.0-17.9); LYMPHOCYTES % (AUTO) 20.3 % (21-51); MEAN CORPUSCULAR HGB CONC 33.4 g/dL (33.0-36.5); MEAN CORPUSCULAR VOLUME 101.7 FL (78-98); MEAN PLATELET VOLUME 10.1 FL (7.4-10.4); MONOCYTES # (AUTO) 0.7 X10'3 (0-0.9); NEUTROPHILS % (AUTO) 61.9 % (42-75); PLATELET COUNT 92 X10'3 (140-440); RED BLOOD COUNT 3.33 X10'6 (4.70-6.10); RED CELL DISTRIBUTION WIDTH 15.4 % (11.5-14.5); WHITE BLOOD COUNT 4.8 X10'3 (4.5-11.0)
[2020-09-13 07:34] LABS: ALANINE AMINOTRANSFERASE 23 U/L (12-78); ALBUMIN 2.9 G/DL (3.4-5.0); ALBUMIN/GLOBULIN RATIO 0.7 (1.1-1.5); ALKALINE PHOSPHATASE 79 IU/L (46-116); ANION GAP 4 (8-16); ASPARTATE AMINO TRANSFERASE 24 U/L (10-37); BILIRUBIN,TOTAL 0.8 MG/DL (0.1-1.0); BLOOD UREA NITROGEN 54 MG/DL (7-18); BUN/CREATININE RATIO 21.5 (5.4-32.0); CALCIUM 8.6 MG/DL (8.5-10.1); CHLORIDE 104 MMOL/L (99-107); CREATININE 2.51 MG/DL (0.60-1.10); GLUCOSE 72 MG/DL (70-104); MAGNESIUM 2.6 MG/DL (1.5-2.4); POTASSIUM 4.1 MMOL/L (3.5-5.1); SODIUM 144 MMOL/L (135-145); TOTAL PROTEIN 6.8 G/DL (6.4-8.2); eGFR 25 ML/MIN
[2020-09-13] MEDS: budesonide 0.5mg/2ml UD nebule IH SCH (08:00)
[2020-09-13] MEDS: K and/or MAG REPLACEMENT MC SCH ×2 (08:00→20:00)
[2020-09-13] MEDS ORDERED: heparin, porcine 5000 units/ml vial SQ SCH (08:00)
[2020-09-13] MEDS: NIACINAMIDE TP SCH ×2 (08:00→20:00)
[2020-09-13] MEDS: [UNRECOGNIZED DRUG - OTHER] TP SCH ×2 (08:00→20:00)
[2020-09-13] MEDS: ICOSAPENT ETHYL 1 GM PO SCH ×2 (08:00→20:00)
[2020-09-13] MEDS: DICLOFENAC SODIUM TP SCH ×2 (08:00→20:00)
[2020-09-13] MEDS: pregabalin 25mg capsule PO SCH ×2 (09:14→20:21)
[2020-09-13] MEDS: losartan 25mg tablet PO SCH (09:14)
[2020-09-13] MEDS: clindamycin 1% topical susp 60ml bottle TP SCH (09:15)
[2020-09-13] MEDS: apixaban 2.5mg tablet PO SCH ×2 (09:15→20:20)
[2020-09-13] MEDS: pantoprazole 40mg Tablet.DR PO SCH (09:15)
[2020-09-13] MEDS: morphine ER 15mg tablet PO SCH ×2 (09:32→20:21)
[2020-09-13 10:00] VITALS: BP 157/86
--- NOTE | 2020-09-13 12:20 | NUR ---
DM Consult: Pt hx DM A1C 7.8 appropriate given age. Addendum: 09/13/20 at [address] Amended: Links added.
[2020-09-13] MEDS: HYDROcodone/acetaminophen 5mg/325mg tablet PO PRN (17:20)
[2020-09-13 18:00] VITALS: BP 172/82
--- NOTE | 2020-09-13 18:12 | NUR ---
Problems reprioritized. Patient report given, questions answered & plan of care reviewed with kady mckeon.
[2020-09-13] MEDS: insulin Lispro (HumaLOG) vial - multi-dose SQ SCH (19:40)
[2020-09-13] MEDS: vancomycin inj 500 MG in normal saline 100ml IV soln 100 ML IV SCH (20:20)
[2020-09-13] MEDS: atorvastatin 10mg tablet PO SCH (20:21)
[2020-09-13] MEDS: furosemide 40mg tablet PO SCH (20:21)
[2020-09-13] MEDS: insulin glargine (Lantus) pen - multi-dose SQ SCH (23:24)
[2020-09-14] MEDS: clindamycin 1% topical susp 60ml bottle TP SCH ×3 (00:21→18:45)
[2020-09-14] MEDS: HYDROcodone/acetaminophen 5mg/325mg tablet PO PRN ×3 (00:41→18:49)
[2020-09-14 06:00] VITALS: BP 156/69
--- NOTE | 2020-09-14 06:47 | NUR ---
Patient in room ORTHO 4017. I have received report from ALBERTINA KIRKLAND and had the opportunity to ask questions and assume patient care.
[2020-09-14 06:51] LABS: BASOPHILS % (AUTO) 0.6 % (0-1); EOSINOPHILS # (AUTO) 0.3 X10'3 (0-0.9); EOSINOPHILS % (AUTO) 6.1 % (0-6); HEMATOCRIT 35.5 % (42.0-52.0); HEMOGLOBIN 11.7 g/dl (14.0-17.9); LYMPHOCYTES # (AUTO) 0.9 X10'3 (1.1-4.8); LYMPHOCYTES % (AUTO) 19.4 % (21-51); MEAN CORPUSCULAR HEMOGLOBIN 33.5 PG (27.0-31.0); MEAN CORPUSCULAR HGB CONC 33.1 g/dL (33.0-36.5); MEAN CORPUSCULAR VOLUME 101.2 FL (78-98); MEAN PLATELET VOLUME 10.5 FL (7.4-10.4); MONOCYTES # (AUTO) 0.7 X10'3 (0-0.9); MONOCYTES % (AUTO) 14.7 % (2-12); NEUTROPHILS # (AUTO) 2.9 X10'3 (1.8-7.7); NEUTROPHILS % (AUTO) 59.2 % (42-75); PLATELET COUNT 102 X10'3 (140-440); RED BLOOD COUNT 3.51 X10'6 (4.70-6.10); RED CELL DISTRIBUTION WIDTH 15.4 % (11.5-14.5); WHITE BLOOD COUNT 4.9 X10'3 (4.5-11.0)
[2020-09-14 07:18] LABS: ALANINE AMINOTRANSFERASE 23 U/L (12-78); ALBUMIN 3.1 G/DL (3.4-5.0); ALBUMIN/GLOBULIN RATIO 0.8 (1.1-1.5); ALKALINE PHOSPHATASE 81 IU/L (46-116); ANION GAP 8 (8-16); ASPARTATE AMINO TRANSFERASE 23 U/L (10-37); BILIRUBIN,TOTAL 0.8 MG/DL (0.1-1.0); BLOOD UREA NITROGEN 50 MG/DL (7-18); BUN/CREATININE RATIO 21.6 (5.4-32.0); CALCIUM 8.4 MG/DL (8.5-10.1); CHLORIDE 103 MMOL/L (99-107); CREATININE 2.31 MG/DL (0.60-1.10); GLUCOSE 162 MG/DL (70-104); MAGNESIUM 2.4 MG/DL (1.5-2.4); POTASSIUM 4.2 MMOL/L (3.5-5.1); SODIUM 144 MMOL/L (135-145); TOTAL CARBON DIOXIDE 32.7 MMOL/L (24-32); TOTAL PROTEIN 7.1 G/DL (6.4-8.2); eGFR 27 ML/MIN
[2020-09-14 08:00] VITALS: BP_SYST 156; BP_SYST 157; BP_SYST 166; BP_DIAS 69; BP_DIAS 81; BP_DIAS 85
[2020-09-14] MEDS: [UNRECOGNIZED DRUG - OTHER] TP SCH ×2 (08:00→20:00)
[2020-09-14] MEDS: ICOSAPENT ETHYL 1 GM PO SCH ×2 (08:00→20:00)
[2020-09-14] MEDS: budesonide 0.5mg/2ml UD nebule IH SCH ×2 (08:00→20:00)
[2020-09-14] MEDS: DICLOFENAC SODIUM TP SCH ×2 (08:00→20:51)
[2020-09-14] MEDS: K and/or MAG REPLACEMENT MC SCH ×2 (08:00→18:28)
[2020-09-14] MEDS: NIACINAMIDE TP SCH ×2 (08:00→20:00)
[2020-09-14] MEDS: apixaban 2.5mg tablet PO SCH ×2 (08:37→20:51)
[2020-09-14] MEDS: pantoprazole 40mg Tablet.DR PO SCH (08:38)
[2020-09-14] MEDS: furosemide 40mg tablet PO SCH ×2 (08:38→20:51)
[2020-09-14] MEDS: pregabalin 25mg capsule PO SCH ×2 (08:38→20:51)
[2020-09-14] MEDS: morphine ER 15mg tablet PO SCH ×2 (08:38→20:50)
[2020-09-14] MEDS: losartan 25mg tablet PO SCH (08:39)
[2020-09-14 08:41] VITALS: BP 149/79
[2020-09-14] MEDS: insulin Lispro (HumaLOG) vial - multi-dose SQ SCH ×3 (09:33→18:43)
[2020-09-14 10:00] VITALS: BP 164/81
[2020-09-14] MEDS ORDERED: RETAINE OP (16:36)
[2020-09-14] MEDS ORDERED: MOME45CR3 TOP (16:38)
--- NOTE | 2020-09-14 18:06 | NUR ---
Problems reprioritized. Patient report given, questions answered & plan of care reviewed with ALBERTINA BEE.
--- NOTE | 2020-09-14 18:30 | NUR ---
Patient in room ORTHO 4017. I have received report from ERLINDA and had the opportunity to ask questions and assume patient care.
[2020-09-14 19:00] VITALS: BP 163/80
[2020-09-14] MEDS: insulin glargine (Lantus) pen - multi-dose SQ SCH (20:49)
[2020-09-14] MEDS: vancomycin inj 500 MG in normal saline 100ml IV soln 100 ML IV SCH (20:50)
[2020-09-14] MEDS: atorvastatin 10mg tablet PO SCH (20:50)
[2020-09-14] MEDS: lactobacillus rhamnosus 10,000 MMU CELLS/CAPSULE PO SCH (20:51)
[2020-09-14 22:00] VITALS: BP 144/75
[2020-09-15] MEDS: HYDROcodone/acetaminophen 5mg/325mg tablet PO PRN (00:10)
[2020-09-15 06:27] VITALS: BP 177/93
--- NOTE | 2020-09-15 06:32 | NUR ---
Patient in room ORTHO 4015. I have received report from CRISTAL ENG and had the opportunity to ask questions and assume patient care.
--- NOTE | 2020-09-15 06:36 | NUR ---
Problems reprioritized. Patient report given, questions answered & plan of care reviewed with ROSEANNA.
[2020-09-15 07:44] LABS: BASOPHILS % (AUTO) 0.6 % (0-1); EOSINOPHILS # (AUTO) 0.3 X10'3 (0-0.9); EOSINOPHILS % (AUTO) 7.7 % (0-6); HEMATOCRIT 35.6 % (42.0-52.0); HEMOGLOBIN 11.9 g/dl (14.0-17.9); LYMPHOCYTES # (AUTO) 1.1 X10'3 (1.1-4.8); LYMPHOCYTES % (AUTO) 25.5 % (21-51); MEAN CORPUSCULAR HEMOGLOBIN 33.4 PG (27.0-31.0); MEAN CORPUSCULAR HGB CONC 33.4 g/dL (33.0-36.5); MEAN CORPUSCULAR VOLUME 100.2 FL (78-98); MONOCYTES # (AUTO) 0.6 X10'3 (0-0.9); MONOCYTES % (AUTO) 15.3 % (2-12); NEUTROPHILS # (AUTO) 2.1 X10'3 (1.8-7.7); NEUTROPHILS % (AUTO) 50.9 % (42-75); PLATELET COUNT 95 X10'3 (140-440); RED BLOOD COUNT 3.56 X10'6 (4.70-6.10); RED CELL DISTRIBUTION WIDTH 15.2 % (11.5-14.5); WHITE BLOOD COUNT 4.2 X10'3 (4.5-11.0)
[2020-09-15] MEDS: lactobacillus rhamnosus 10,000 MMU CELLS/CAPSULE PO SCH (07:53)
[2020-09-15] MEDS: pantoprazole 40mg Tablet.DR PO SCH (07:53)
[2020-09-15 07:55] VITALS: BP_SYST 177
[2020-09-15] MEDS: losartan 25mg tablet PO SCH (07:55)
[2020-09-15] MEDS: furosemide 40mg tablet PO SCH (07:55)
[2020-09-15] MEDS: apixaban 2.5mg tablet PO SCH (07:55)
[2020-09-15] MEDS: pregabalin 25mg capsule PO SCH (07:55)
[2020-09-15] MEDS: morphine ER 15mg tablet PO SCH (07:56)
[2020-09-15] MEDS: ICOSAPENT ETHYL 1 GM PO SCH (07:56)
[2020-09-15] MEDS: clindamycin 1% topical susp 60ml bottle TP SCH (07:58)
[2020-09-15] MEDS: DICLOFENAC SODIUM TP SCH (07:58)
[2020-09-15] MEDS: [UNRECOGNIZED DRUG - OTHER] TP SCH (07:59)
[2020-09-15] MEDS: NIACINAMIDE TP SCH (07:59)
[2020-09-15] MEDS: K and/or MAG REPLACEMENT MC SCH (08:00)
[2020-09-15] MEDS: budesonide 0.5mg/2ml UD nebule IH SCH (08:00)
[2020-09-15 08:23] LABS: ALANINE AMINOTRANSFERASE 27 U/L (12-78); ALBUMIN 3.1 G/DL (3.4-5.0); ALBUMIN/GLOBULIN RATIO 0.8 (1.1-1.5); ALKALINE PHOSPHATASE 73 IU/L (46-116); ANION GAP 8 (8-16); ASPARTATE AMINO TRANSFERASE 26 U/L (10-37); BILIRUBIN,TOTAL 0.7 MG/DL (0.1-1.0); BLOOD UREA NITROGEN 46 MG/DL (7-18); BUN/CREATININE RATIO 21.2 (5.4-32.0); CALCIUM 8.6 MG/DL (8.5-10.1); CHLORIDE 104 MMOL/L (99-107); CREATININE 2.17 MG/DL (0.60-1.10); GLUCOSE 103 MG/DL (70-104); MAGNESIUM 2.3 MG/DL (1.5-2.4); SODIUM 145 MMOL/L (135-145); TOTAL CARBON DIOXIDE 32.8 MMOL/L (24-32); TOTAL PROTEIN 7.2 G/DL (6.4-8.2); eGFR 29 ML/MIN
[2020-09-15] MEDS ORDERED: CLIN-91 PO (08:45)
[2020-09-15 11:08] LABS: TOTAL CELLS COUNTED 100
[2020-09-15 11:09] LABS: PLATELET ESTIMATE DECREASED
--- NOTE | 2020-09-15 12:00 | NUR ---
PATIENT DISCHARGED HOME, EDUCATION WAS DONE WITH FAMILY IN THE ROOM. ONE NEW MEDICATIONS WAS ADDED AND EXPLAINED TO PATIENT. PATIENT EXPRESSED VERBAL UNDERSTANDING OF DISCHARGE TEACHING. PATIENT IV AND TELE DC'S BY CHARGE NURSE PRIOR TO DISCHARGE PATIENT WAS TAKEN DOWN TO LOBBY VIA WHEELCHAIR AN TAKEN HOME BY FAMILY AT DISCHARGE.
[2020-09-15] MEDS ORDERED: VANCOMYCIN LEVEL IV ONE (19:30)
== END 2020-09-15 12:00 | disposition home health service (06) | DRG 602 ==
LOC: ER 14:36 → ED HOLD 21:53 → OBSVTOIN 21:53 → ORTHO 4S 23:24
PROVIDERS: ADMIT Internal Medicine; ATTEND Internal Medicine
DX: L03.115 Cellulitis of right lower limb (principal); N17.0 Acute kidney failure with tubular necrosis; N17.9 Acute kidney failure, unspecified; L03.116 Cellulitis of left lower limb; J44.9 Chronic obstructive pulmonary disease, unspecified; G89.4 Chronic pain syndrome; E78.00 Pure hypercholesterolemia, unspecified; E11.22 Type 2 diabetes mellitus with diabetic chronic kidney disease; D69.6 Thrombocytopenia, unspecified; G47.30 Sleep apnea, unspecified; K21.9 Gastro-esophageal reflux disease without esophagitis; S80.921A Unspecified superficial injury of right lower leg, initial encounter; M54.9 Dorsalgia, unspecified; X58.XXXA Exposure to other specified factors, initial encounter; E66.01 Morbid (severe) obesity due to excess calories; D53.9 Nutritional anemia, unspecified; I12.9 Hypertensive chronic kidney disease with stage 1 through stage 4 chronic kidney disease, or unspecified chronic kidney disease; E78.5 Hyperlipidemia, unspecified; E11.40 Type 2 diabetes mellitus with diabetic neuropathy, unspecified; N18.30 Chronic kidney disease, stage 3 unspecified; Z79.01 Long term (current) use of anticoagulants; Z86.718 Personal history of other venous thrombosis and embolism; Z86.73 Personal history of transient ischemic attack (TIA), and cerebral infarction without residual deficits; Z79.899 Other long term (current) drug therapy; Z68.38 Body mass index [BMI] 38.0-38.9, adult; Z88.8 Allergy status to other drugs, medicaments and biological substances; Z90.49 Acquired absence of other specified parts of digestive tract; Y93.89 Activity, other specified; Y92.89 Other specified places as the place of occurrence of the external cause; Y99.8 Other external cause status
CPT/HCPCS: 36415; 36600; 70450; 71045; 73700; 80053; 81003; 82803; 82948; 83036; 83605; 83735; 83880; 84145; 84484; 85007; 85018; 85025; 87040; 87081; 93005; 94760; 96361; 96365; 96368; 97116; 97161; 97530; 99285; G0378; J0696; J1815; J3370; J7030

== ENCOUNTER 2020-10-01 10:47 | Emergency (ER) | payer MEDICARE, OTHER ==
[~2020-10-01] VITALS: Ht 175.3 cm; Wt 120.5 kg
[~2020-10-01 10:47] MED LIST changes: +LIDOcaine 2% 5ml jelly ONE; +MOME45CR3 TOP; +RETAINE OP
[2020-10-01 11:41] LABS: BASOPHILS % (AUTO) 0.6 % (0-1); EOSINOPHILS # (AUTO) 0.2 X10'3 (0-0.9); EOSINOPHILS % (AUTO) 3.5 % (0-6); HEMATOCRIT 34.3 % (42.0-52.0); HEMOGLOBIN 11.4 g/dl (14.0-17.9); LYMPHOCYTES # (AUTO) 1.6 X10'3 (1.1-4.8); LYMPHOCYTES % (AUTO) 28.6 % (21-51); MEAN CORPUSCULAR HEMOGLOBIN 33.3 PG (27.0-31.0); MEAN CORPUSCULAR HGB CONC 33.1 g/dL (33.0-36.5); MEAN CORPUSCULAR VOLUME 100.4 FL (78-98); MEAN PLATELET VOLUME 9.6 FL (7.4-10.4); MONOCYTES # (AUTO) 0.8 X10'3 (0-0.9); MONOCYTES % (AUTO) 13.3 % (2-12); NEUTROPHILS # (AUTO) 3.1 X10'3 (1.8-7.7); PLATELET COUNT 105 X10'3 (140-440); RED BLOOD COUNT 3.41 X10'6 (4.70-6.10); RED CELL DISTRIBUTION WIDTH 14.7 % (11.5-14.5); WHITE BLOOD COUNT 5.8 X10'3 (4.5-11.0)
[2020-10-01 11:53] LABS: ALANINE AMINOTRANSFERASE 25 U/L (12-78); ALBUMIN 3.7 G/DL (3.4-5.0); ALBUMIN/GLOBULIN RATIO 0.9 (1.1-1.5); ALKALINE PHOSPHATASE 77 IU/L (46-116); ANION GAP 7 (8-16); ASPARTATE AMINO TRANSFERASE 27 U/L (10-37); BILIRUBIN,TOTAL 0.7 MG/DL (0.1-1.0); BLOOD UREA NITROGEN 53 MG/DL (7-18); BUN/CREATININE RATIO 21.6 (5.4-32.0); CALCIUM 9.1 MG/DL (8.5-10.1); CHLORIDE 102 MMOL/L (99-107); CREATININE 2.45 MG/DL (0.60-1.10); GLUCOSE 123 MG/DL (70-104); POTASSIUM 4.1 MMOL/L (3.5-5.1); SODIUM 145 MMOL/L (135-145); TOTAL CARBON DIOXIDE 36.5 MMOL/L (24-32); TOTAL PROTEIN 7.6 G/DL (6.4-8.2); eGFR 26 ML/MIN
[2020-10-01 13:20] VITALS: BP 166/74
[2020-10-01 13:44] LABS: C-REACTIVE PROTEIN 1.38 MG/DL (0.0-0.5)
[2020-10-01] MEDS ORDERED: DOXY100C76 PO (14:44)
[2020-10-01] MEDS ORDERED: CLIN150C2 PO (14:44)
== END 2020-10-01 15:01 | disposition home or self-care (01) ==
LOC: ER 10:48
DX: L03.115 Cellulitis of right lower limb (principal); L03.116 Cellulitis of left lower limb; J96.10 Chronic respiratory failure, unspecified whether with hypoxia or hypercapnia; E78.00 Pure hypercholesterolemia, unspecified; I10 Essential (primary) hypertension; J44.9 Chronic obstructive pulmonary disease, unspecified; K21.9 Gastro-esophageal reflux disease without esophagitis; G47.30 Sleep apnea, unspecified; E11.9 Type 2 diabetes mellitus without complications; G89.29 Other chronic pain; Z87.81 Personal history of (healed) traumatic fracture; Z86.718 Personal history of other venous thrombosis and embolism; Z90.49 Acquired absence of other specified parts of digestive tract; Z98.890 Other specified postprocedural states; Z79.4 Long term (current) use of insulin; Z79.899 Other long term (current) drug therapy; Z79.2 Long term (current) use of antibiotics; Z99.81 Dependence on supplemental oxygen; Z91.040 Latex allergy status; Z88.8 Allergy status to other drugs, medicaments and biological substances
CPT/HCPCS: 36415; 80053; 82948; 84145; 85025; 85651; 86140; 99283

== ENCOUNTER → 2021-02-17 | Emergency (ER) | payer MEDICARE, OTHER ==
[~2021-02-17] VITALS: Ht 175.3 cm; Wt 118.2 kg
[~2021-02-17] MED LIST changes: -LIDOcaine 2% 5ml jelly ONE
[2021-02-17 13:43] VITALS: BP 150/82
== END | disposition home or self-care (01) ==
LOC: ER 12:46
DX: S09.90XA Unspecified injury of head, initial encounter (principal); M25.551 Pain in right hip; I48.91 Unspecified atrial fibrillation; E78.00 Pure hypercholesterolemia, unspecified; I10 Essential (primary) hypertension; J44.9 Chronic obstructive pulmonary disease, unspecified; K21.9 Gastro-esophageal reflux disease without esophagitis; E11.9 Type 2 diabetes mellitus without complications; G89.29 Other chronic pain; Z86.718 Personal history of other venous thrombosis and embolism; Z90.49 Acquired absence of other specified parts of digestive tract; Z98.890 Other specified postprocedural states; Z91.040 Latex allergy status; Z88.8 Allergy status to other drugs, medicaments and biological substances; Z79.4 Long term (current) use of insulin; Z79.899 Other long term (current) drug therapy; W19.XXXA Unspecified fall, initial encounter; Y93.89 Activity, other specified; Y92.89 Other specified places as the place of occurrence of the external cause; Y99.8 Other external cause status
CPT/HCPCS: 70450; 73502; 99284

== ENCOUNTER 2021-05-08 20:22 | Inpatient (IN) | payer MEDICARE, OTHER ==
[~2021-05-08] VITALS: Ht 180.3 cm; Wt 136.4 kg
[~2021-05-08 20:22] MED LIST changes: -APIX2.5T PO; -ATR0.5NEB IH; -CHOL2000 PO; -DICL100G15 TOP; -DULA1.5P SQ; +DULA3PEN SQ; -DULO-31 PO; +DULO60CA59 PO; +EMPA10TA PO; +FLO44IN PO; -FLUO30CR46 TOP; -FLUT100D2 INH; -FLUT12AE9 INH; +FLUT16SP2 BOTHNARES; +FOLI1TAB27 PO; -FURO40TA4 PO; -GABA-532 PO; +GABA300C PO; +HYDR-3972 PO; -HYDR-4353 PO; -ICOS1CAP PO; +INSU100I52 SQ; -INSU200I SQ; -INSU200I4; +INSU200I4 SQ; +IPRA3AMP31 IH; -LOSA25TA96 PO; +LOSA50TA64 PO; -LYR25C PO; +MELA10TA3 PO; +MINE3.5O5 EACHEYE; -MOME45CR3 TOP; -MORP-92 PO; +MORP15TA PO; -NALO4SPR BOTHNARES; -NITR0.4T51 SL; +OMEG-133 PO; -PANT40TA39 PO; +PANT40TA54 PO; +POLY119P2 PO; +PREG50CA PO; +PROP10TA10 PO; -RETAINE OP; -VALA100031 PO; +VALA500T PO
[2021-05-08 21:49] LABS: BASOPHILS % (AUTO) 0.3 % (0-1); EOSINOPHILS # (AUTO) 0.2 X10'3 (0-0.9); EOSINOPHILS % (AUTO) 1.8 % (0-6); HEMATOCRIT 27.9 % (42.0-52.0); HEMOGLOBIN 8.9 g/dl (14.0-17.9); LYMPHOCYTES # (AUTO) 1.5 X10'3 (1.1-4.8); LYMPHOCYTES % (AUTO) 16.5 % (21-51); MEAN CORPUSCULAR HEMOGLOBIN 28.4 PG (27.0-31.0); MEAN CORPUSCULAR HGB CONC 31.8 g/dL (33.0-36.5); MEAN CORPUSCULAR VOLUME 89.3 FL (78-98); MEAN PLATELET VOLUME 10.3 FL (7.4-10.4); MONOCYTES % (AUTO) 11.6 % (2-12); NEUTROPHILS # (AUTO) 6.2 X10'3 (1.8-7.7); NEUTROPHILS % (AUTO) 69.8 % (42-75); PLATELET COUNT 131 X10'3 (140-440); RED BLOOD COUNT 3.13 X10'6 (4.70-6.10); RED CELL DISTRIBUTION WIDTH 16.4 % (11.5-14.5); WHITE BLOOD COUNT 8.8 X10'3 (4.5-11.0)
[2021-05-08 22:30] LABS: ALANINE AMINOTRANSFERASE 21 U/L (12-78); ALBUMIN/GLOBULIN RATIO 0.8 (1.1-1.5); ALKALINE PHOSPHATASE 84 IU/L (46-116); ANION GAP 7 (8-16); ASPARTATE AMINO TRANSFERASE 22 U/L (10-37); BILIRUBIN,TOTAL 0.5 MG/DL (0.1-1.0); BLOOD UREA NITROGEN 68 MG/DL (7-18); BUN/CREATININE RATIO 23.9 (5.4-32.0); CALCIUM 8.6 MG/DL (8.5-10.1); CHLORIDE 105 MMOL/L (99-107); CREATININE 2.85 MG/DL (0.60-1.10); GLUCOSE 85 MG/DL (70-104); POTASSIUM 5.2 MMOL/L (3.5-5.1); SODIUM 144 MMOL/L (135-145); TOTAL CARBON DIOXIDE 32.2 MMOL/L (24-32); TOTAL PROTEIN 6.8 G/DL (6.4-8.2); eGFR 21 ML/MIN
[2021-05-08 22:53] LABS: LIPASE < 50 U/L (73-393)
[2021-05-09 00:20] LABS: CLARITY,URINE CLEAR (Clear); COLOR,URINE YELLOW (Yellow); GLUCOSE, URINE 100 mg/dl (Neg); KETONES,URINE NEGATIVE (Neg); LEUKOCYTE ESTERASE ,URINE NEGATIVE (Neg); NITRITES, URINE NEGATIVE (Neg); OCCULT BLOOD,URINE NEGATIVE (Neg); PH,URINE 5.5 (4.8-8.0); PROTEIN,URINE NEGATIVE (Neg); UROBILINOGEN,URINE 0.2 E.U/dL (0.2-1.0)
[2021-05-09 00:26] LABS: UA COLLECTION TYPE CLN CATCH MIDSTREAM
[2021-05-09] MEDS ORDERED: FURO-149 PO (02:14)
[2021-05-09] MEDS ORDERED: MORP-92 PO (02:40)
[2021-05-09] MEDS ORDERED: NITR0.4T51 SL (02:45)
[2021-05-09] MEDS ORDERED: PROP10TA10 PO (02:45)
[2021-05-09] MEDS ORDERED: LORA10TA7 PO (02:45)
[2021-05-09] MEDS ORDERED: CYAN500T71 PO (02:45)
[2021-05-09] MEDS ORDERED: MULT-1085 PO (02:45)
[2021-05-09] MEDS ORDERED: CHOL100025 PO (02:45)
[2021-05-09] MEDS ORDERED: magnesium hydroxide 30ml (MOM) UD suspension PO PRN (03:20)
[2021-05-09] MEDS ORDERED: acetaminophen 325mg tablet PO PRN ×2 (03:20→08:15)
[2021-05-09] MEDS ORDERED: magnesium 4gm in 100ml NS 100 ML IV PRN (03:20)
[2021-05-09] MEDS ORDERED: potassium Cl 20 mEq SR tablet PO PRN ×2 (03:20)
[2021-05-09] MEDS ORDERED: potassium CL 10mEq/100ml bag 100 ML IV PRN (03:20)
[2021-05-09] MEDS ORDERED: mag hydrox/Alum hydrox/simeth 30ml oral suspension PO PRN (03:20)
[2021-05-09] MEDS ORDERED: magnesium 2GM in 50ml NS 50 ML IV PRN (03:20)
[2021-05-09] MEDS ORDERED: ondansetron/PF 4mg/2ml inj IV PRN (03:20)
[2021-05-09] MEDS ORDERED: magnesium Cl slow-release 64mg tablet PO PRN (03:20)
[2021-05-09] MEDS ORDERED: nitroGLYCERIN 0.4mg SUBLingual tab SL PRN (03:30)
[2021-05-09] MEDS ORDERED: glucagon, human recombinant 1mg kit SUBCUT PRN (03:30)
[2021-05-09] MEDS ORDERED: lactulose 20gm/30ml cup PO ONE (03:30)
[2021-05-09] MEDS ORDERED: dextrose 50%-water 50ml dispensing syringe IV PRN ×2 (03:30)
[2021-05-09] MEDS ORDERED: insulin Lispro (HumaLOG) vial - multi-dose SQ SCH (03:30)
[2021-05-09] MEDS ORDERED: MESSAGE TO PHARMACY PO ONE (03:30)
[2021-05-09] MEDS ORDERED: DEXTROSE 15 GM of carb/4 tabs (each vial/BOTTLE has 4 tablets) PO PRN (03:30)
[2021-05-09 05:48] LABS: MAGNESIUM 2.8 MG/DL (1.5-2.4)
[2021-05-09 08:00] VITALS: BP 169/81
[2021-05-09] MEDS: fluticasone nasal spray 16GM bottle NS SCH (08:00)
[2021-05-09] MEDS ORDERED: furosemide 40mg tablet PO SCH (08:00)
[2021-05-09] MEDS: K and/or MAG REPLACEMENT MC SCH ×2 (08:00→20:00)
[2021-05-09] MEDS: docusate sod 100mg capsule PO SCH ×2 (08:00→20:37)
[2021-05-09] MEDS: DEXTROSE 15 GM of carb/4 tabs (each vial/BOTTLE has 4 tablets) PO PRN ×2 (08:16→08:17)
[2021-05-09] MEDS: propranolol 10mg tablet PO SCH ×2 (08:26→20:37)
[2021-05-09] MEDS: duloxetine 30mg CAPSULE.DR PO SCH (08:26)
[2021-05-09] MEDS: pantoprazole 40mg Tablet.DR PO SCH ×2 (08:26→20:37)
[2021-05-09] MEDS: losartan 50mg tablet PO SCH (08:26)
[2021-05-09] MEDS: budesonide 0.5mg/2ml UD nebule IH SCH ×2 (08:45→19:21)
[2021-05-09] MEDS: ipratropium/albuterol 3ml nebule IH PRN ×2 (08:45→19:21)
[2021-05-09] MEDS ORDERED: methylPREDNISolone sod succ 125mg/2ml vial IV ONE (08:50)
[2021-05-09] MEDS: furosemide 40mg/4ml inj IV SCH ×2 (10:04→20:36)
[2021-05-09 10:26] LABS: APTT 32 SECONDS (22-32)
[2021-05-09 10:37] LABS: ALANINE AMINOTRANSFERASE 22 U/L (12-78); ALBUMIN/GLOBULIN RATIO 0.8 (1.1-1.5); ALKALINE PHOSPHATASE 85 IU/L (46-116); ANION GAP 10 (8-16); ASPARTATE AMINO TRANSFERASE 29 U/L (10-37); BILIRUBIN,TOTAL 0.5 MG/DL (0.1-1.0); BLOOD UREA NITROGEN 64 MG/DL (7-18); BUN/CREATININE RATIO 25.8 (5.4-32.0); CALCIUM 8.5 MG/DL (8.5-10.1); CHLORIDE 104 MMOL/L (99-107); CREATININE 2.48 MG/DL (0.60-1.10); GLUCOSE 125 MG/DL (70-104); SODIUM 143 MMOL/L (135-145); TOTAL CARBON DIOXIDE 29.1 MMOL/L (24-32); TOTAL PROTEIN 6.8 G/DL (6.4-8.2); eGFR 25 ML/MIN
[2021-05-09 10:43] LABS: POTASSIUM 5.4 MMOL/L (3.5-5.1)
[2021-05-09 11:00] VITALS: BP 157/65
[2021-05-09 12:12] LABS: BASOPHILS % (AUTO) 0.1 % (0-1); EOSINOPHILS # (AUTO) 0.1 X10'3 (0-0.9); EOSINOPHILS % (AUTO) 1.6 % (0-6); HEMATOCRIT 29.1 % (42.0-52.0); HEMOGLOBIN 9.2 g/dl (14.0-17.9); LYMPHOCYTES # (AUTO) 0.9 X10'3 (1.1-4.8); MEAN CORPUSCULAR HEMOGLOBIN 28.5 PG (27.0-31.0); MEAN CORPUSCULAR HGB CONC 31.7 g/dL (33.0-36.5); MEAN CORPUSCULAR VOLUME 89.9 FL (78-98); MONOCYTES # (AUTO) 0.4 X10'3 (0-0.9); MONOCYTES % (AUTO) 8.3 % (2-12); NEUTROPHILS # (AUTO) 3.7 X10'3 (1.8-7.7); PLATELET COUNT 112 X10'3 (140-440); RED BLOOD COUNT 3.24 X10'6 (4.70-6.10); RED CELL DISTRIBUTION WIDTH 16.7 % (11.5-14.5)
--- NOTE | 2021-05-09 12:12 | NUR ---
message to dr bhat "PAGER ID: [phone] MESSAGE: [id number] hanks ammonia 56; k 5.4 ; pt 15.1; gfr 25; bun 64; creat 64~leeann [id number]"
--- NOTE | 2021-05-09 15:05 | NUR ---
message to dr raudel bhat "PAGER ID: [phone] MESSAGE: 356B hanks US abd was done, but not resulted yet. can the pt have a diet? 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
[2021-05-09] MEDS: lactulose 20gm/30ml cup PO SCH ×2 (15:14→20:38)
[2021-05-09] MEDS: methylPREDNISolone sod succ 125mg/2ml vial IV SCH ×2 (15:14→20:38)
--- NOTE | 2021-05-09 15:54 | NUR ---
message to dr bhat "PAGER ID: [phone] MESSAGE: 356B demario weaver also please order pain meds. has a headache and abd/leg pain he has Tylenol ordered, is that ok to give?"
[2021-05-09] MEDS: acetaminophen 325mg tablet PO PRN ×2 (17:37→20:36)
[2021-05-09 19:00] VITALS: BP 137/79
[2021-05-09] MEDS ORDERED: insulin glargine (Lantus) pen - multi-dose SQ SCH (21:00)
[2021-05-09] MEDS: HYDROcodone/acetaminophen 5mg/325mg tablet PO PRN (21:36)
[2021-05-09] MEDS ORDERED: morphine 4 MG/ML inj SYRINge IV ONE (23:45)
[2021-05-10] VITALS (7 sets, daily range): BP systolic 122–174; BP diastolic 54–84
[2021-05-10] MEDS: HYDROcodone/acetaminophen 5mg/325mg tablet PO PRN ×2 (02:31→08:18)
[2021-05-10] MEDS: methylPREDNISolone sod succ 125mg/2ml vial IV SCH ×2 (02:32→08:17)
[2021-05-10] MEDS: lactulose 20gm/30ml cup PO SCH ×2 (02:32→08:23)
[2021-05-10 06:41] LABS: BASOPHILS % (AUTO) 0.1 % (0-1); EOSINOPHILS % (AUTO) 0 % (0-6); HEMATOCRIT 27.5 % (42.0-52.0); HEMOGLOBIN 8.8 g/dl (14.0-17.9); LYMPHOCYTES # (AUTO) 0.5 X10'3 (1.1-4.8); MEAN CORPUSCULAR HEMOGLOBIN 28.7 PG (27.0-31.0); MEAN CORPUSCULAR HGB CONC 32.2 g/dL (33.0-36.5); MEAN CORPUSCULAR VOLUME 89.2 FL (78-98); MEAN PLATELET VOLUME 10.4 FL (7.4-10.4); MONOCYTES # (AUTO) 0.1 X10'3 (0-0.9); MONOCYTES % (AUTO) 2.4 % (2-12); NEUTROPHILS # (AUTO) 4.2 X10'3 (1.8-7.7); NEUTROPHILS % (AUTO) 86.5 % (42-75); PLATELET COUNT 118 X10'3 (140-440); RED BLOOD COUNT 3.08 X10'6 (4.70-6.10); RED CELL DISTRIBUTION WIDTH 16.7 % (11.5-14.5); WHITE BLOOD COUNT 4.8 X10'3 (4.5-11.0)
[2021-05-10 07:29] LABS: ALANINE AMINOTRANSFERASE 24 U/L (12-78); ALBUMIN/GLOBULIN RATIO 0.8 (1.1-1.5); ALKALINE PHOSPHATASE 86 IU/L (46-116); ANION GAP 12 (8-16); ASPARTATE AMINO TRANSFERASE 21 U/L (10-37); BILIRUBIN,TOTAL 0.5 MG/DL (0.1-1.0); BLOOD UREA NITROGEN 68 MG/DL (7-18); BUN/CREATININE RATIO 26.4 (5.4-32.0); CALCIUM 8.8 MG/DL (8.5-10.1); CHLORIDE 103 MMOL/L (99-107); CREATININE 2.58 MG/DL (0.60-1.10); GLUCOSE 218 MG/DL (70-104); POTASSIUM 4.8 MMOL/L (3.5-5.1); SODIUM 144 MMOL/L (135-145); TOTAL PROTEIN 6.8 G/DL (6.4-8.2); eGFR 24 ML/MIN
[2021-05-10] MEDS: K and/or MAG REPLACEMENT MC SCH (08:00)
[2021-05-10] MEDS: budesonide 0.5mg/2ml UD nebule IH SCH (08:00)
[2021-05-10] MEDS: furosemide 40mg/4ml inj IV SCH (08:16)
[2021-05-10] MEDS: duloxetine 30mg CAPSULE.DR PO SCH (08:17)
[2021-05-10] MEDS: propranolol 10mg tablet PO SCH (08:18)
[2021-05-10] MEDS: losartan 50mg tablet PO SCH (08:18)
[2021-05-10] MEDS: pantoprazole 40mg Tablet.DR PO SCH (08:18)
[2021-05-10] MEDS: docusate sod 100mg capsule PO SCH (08:19)
[2021-05-10] MEDS: fluticasone nasal spray 16GM bottle NS SCH (08:19)
[2021-05-10] MEDS ORDERED: LIDOcaine 1% 30ml preserv. free vial ONE (08:29)
[2021-05-10] MEDS ORDERED: albumin (human) 25% 100 ML IV solution IV ONE (09:35)
[2021-05-10] MEDS ORDERED: PRED20TA PO (10:20)
[2021-05-10] MEDS ORDERED: LACT10SO32 PO (10:20)
--- NOTE | 2021-05-10 12:59 | NUR ---
PAGER ID: [phone] MESSAGE: , PATIENT IN [facility] , ORDERD FOR DISCHARGE . CAN WE DISCONTINUE HIS HEALY CATHETER PRIOR TO HIM GOING HOME OR TAKE IT HOME
--- NOTE | 2021-05-10 13:27 | NUR ---
Bonnie jernigan per doctors order. Addendum: 05/10/21 at 1328 by Heather Hui RN Amended: Links added. 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
--- NOTE | 2021-05-10 13:55 | NUR ---
ASSISTING RN WITH PT CARE, PT DC'D HOME WITH FAMILY, WILL FOLLOW UP WITH PMD INSTRUCTED, VERBALIZED UNDERSTANDING DC INSTRUCTIONS, NO QUESTIONS, TOOK PT TO CAR IN WHEELCHAIR WITH 02 3LITERS NASAL CANNULA, PT IS ON O2 03/10
== END 2021-05-10 13:57 | disposition home or self-care (01) | DRG 441 ==
LOC: ER 20:25 → ED HOLD 05-09 03:25 → SUR 3N 05-09 08:08
PROVIDERS: ADMIT Internal Medicine; ATTEND Internal Medicine
PROC: 0W9G3ZZ Drainage of Peritoneal Cavity, Percutaneous Approach (ICD-10-PCS; principal; 2021-05-10)
DX: K72.90 Hepatic failure, unspecified without coma (principal); G92.9 Unspecified toxic encephalopathy; J96.01 Acute respiratory failure with hypoxia; K76.6 Portal hypertension; R18.8 Other ascites; E11.22 Type 2 diabetes mellitus with diabetic chronic kidney disease; E78.00 Pure hypercholesterolemia, unspecified; G47.33 Obstructive sleep apnea (adult) (pediatric); I48.91 Unspecified atrial fibrillation; E78.5 Hyperlipidemia, unspecified; E11.40 Type 2 diabetes mellitus with diabetic neuropathy, unspecified; F32.A Depression, unspecified; I12.9 Hypertensive chronic kidney disease with stage 1 through stage 4 chronic kidney disease, or unspecified chronic kidney disease; R14.0 Abdominal distension (gaseous); J44.9 Chronic obstructive pulmonary disease, unspecified; K31.89 Other diseases of stomach and duodenum; K74.60 Unspecified cirrhosis of liver; K76.0 Fatty (change of) liver, not elsewhere classified; N18.9 Chronic kidney disease, unspecified; G89.29 Other chronic pain; K21.9 Gastro-esophageal reflux disease without esophagitis; M54.9 Dorsalgia, unspecified; Z88.8 Allergy status to other drugs, medicaments and biological substances; Z91.040 Latex allergy status; Z90.49 Acquired absence of other specified parts of digestive tract; Z79.899 Other long term (current) drug therapy
CPT/HCPCS: 36415; 49083; 71045; 76700; 80053; 81003; 82140; 82948; 83690; 83735; 83880; 84443; 84484; 85025; 85610; 85730; 93005; 94640; 94760; 99285; G0378; J1815; J1940; J2270; J2930; J3490; P9047